=== PATIENT | female | born 1935 | race Caucasian/White ===

== ENCOUNTER 2018-07-13 22:25 | Inpatient (IN) ==
[2018-07-13] MEDS ORDERED: NS 1,000 ML IV ONE (22:55)
[2018-07-14 00:30] LABS: BASO# 0.02 X1000 (0.0-0.2); BASO% 0.2 % (0.0-0.8); EOS# 0.09 X1000 (0.0-0.7); HEMOGLOBIN 11.9 g/dL (12.0-16.0); LYMPH# 0.59 X1000 (1.2-3.4); LYMPH% 6.3 % (20.5-51.1); MCH 29.6 PG (27-31); MCV 87.1 FL (81-99); MONO# 0.95 X1000 (0.11-0.59); MONO% 10.1 % (1.7-9.3); MPV 10.6 FL (7.4-10.4); NEUT# 7.79 X1000 (1.4-6.5); NEUT% 82.4 % (42.2-75.2); PLT 215 X1000 (130-400); RBC 4.02 XMIL (4.2-5.4); WBC 9.44 X1000 (4.8-10.8)
[2018-07-14 00:40] LABS: INR 0.97; PROTIME 13.7 Seconds (11.0-16.0)
[2018-07-14 00:41] LABS: PTT 34.6 Seconds (22.3-41.8)
[2018-07-14 00:54] LABS: ALB/GLOB RATIO 1.6; CALCIUM 8.9 mg/dL (8.8-10.2); CREATININE 1.5 mg/dL (0.5-0.9); POTASSIUM 4.1 mmol/L (3.5-5.1); TOTAL BILIRUBIN 0.63 mg/dL (0.20-1.00); TOTAL PROTEIN 6.5 g/dL (6.3-8.3)
[2018-07-14] MEDS ORDERED: ASPIRIN PO ONE (01:10)
[2018-07-14 01:35] LABS: URINE SOURCE CLEAN CATCH
[2018-07-14 01:40] LABS: BILIRUBIN URINE NEGATIVE (NEGATIVE); BLOOD URINE MODERATE (NEGATIVE); COLOR ORANGE; GLUCOSE URINE NEGATIVE (NEGATIVE); KETONE URINE NEGATIVE (NEGATIVE); LEUKOCYTES URINE LARGE (NEGATIVE); NITRITE URINE POSITIVE (NEGATIVE); PH URINE 5.5; PROTEIN URINE 50 mg/dL (NEGATIVE); SP GRAVITY URINE 1.004; TURBIDITY URINE TURBID (CLEAR); UROBILINOGEN URINE NORMAL (NORMAL)
[2018-07-14 01:49] LABS: UR EPITHELIAL CELLS <10 /HPF (<10); URINE BACTERIA 4+ /HPF; URINE RBC TNTC /HPF (<10); URINE WBC TNTC /HPF (<10)
[2018-07-14 02:04] LABS: URINE CASTS GRANULAR PRESENT; URINE YEAST NONE SEEN
[2018-07-14 02:05] LABS: URINE CRYSTALS URIC ACID PRESENT; URINE SMALL ROUND CELLS NONE SEEN
--- NOTE | 2018-07-14 02:18 | PROVIDER DOCUMENTATION ---
This chart was entered by Hayley Tipton Scribe, acting as scribe for Quinn Delgadillo MD. HPI-Neurological Disorder - General Chief Complaint: Stroke-Like Symptoms Stated Complaint: n/v/d Time Seen by Provider: 07/13/18 22:51 Source: patient Unable to obtain history due to:: altered (confused) Allergies/Adverse Reactions: Patient Allergies Allergy/AdvReac Type Severity Reaction Status Date / Time No Known Allergies Allergy Verified 07/13/18 23:05 Home Medications: Home Medication List Medication Instructions Recorded Confirmed Last Taken Type Carvedilol [Coreg] 3.125 mg PO DAILY 03/24/13 07/14/18 12/09/14 08:00 History Aspirin [Aspirin EC] 81 mg PO DAILY 11/11/13 07/14/18 12/09/14 08:00 History Amlodipine Besylate 1 tab PO DAILY 07/14/18 07/14/18 Unknown History Calcitriol 1 cap PO DAILY 07/14/18 07/14/18 Unknown History - History of Present Illness-Neuro Nature of Presenting Problem: pt is a 83 yr old female presenting via EMS with complaint(pt unsure of time) of headache, nausea, vomiting, diarrhea. pt is confused, right side weakness. unknown last time normal. pt does have stroke hx, unknown prior deficits. Headache Location: reports: frontal Severity: reports: severe Onset/Duration: reports: unsure (pt reports "all day" medic reports 2-3hrs) Timing: reports: still present Character of Altered Mental Status: reports: confused Any recent trauma/injury?: reports: none Character of Deficits: reports: new weakness (right sided weakness) New weakness or altered sensation location:: reports: RUE, RLE Cognitive Baseline: alert but confused Gait Baseline: walks without assistance Associated Symptoms: reports: headache, confusion, nausea, trouble walking, vo miting, other (diarrhea) Similar Symptoms Previously?: No Recently seen or treated by another doctor?: No Review of Systems - Adult - REVIEW OF SYSTEMS - ADULT Constitutional: denies: chills, fever Eyes: denies: blurred vision, double vision Ears, Nose, Mouth & Throat: denies: ear pain, sinus problem, throat pain Cardiovascular: denies: chest pain, palpitations, syncope Respiratory: denies: shortness of breath Gastrointestinal: reports: diarrhea, nausea, vomiting. denies: abdominal pain Genitourinary: reports: no symptoms reported Musculoskeletal: denies: back pain, neck pain Integumentary: reports: no symptoms reported Neurological: reports: headache/migraines, other (weakness right side). denies: dizziness/vertigo, syncope Psychiatric: reports: no symptoms reported Endocrine: reports: no symptoms reported Hematologic/Lymphatic: reports: no symptoms reported Allergic/Immunologic: reports: no symptoms reported All Other Systems: Reviewed and Negative Past History - Adult - PAST MEDICAL HISTORY-ADULT Review of Records: reports: Old Records Reviewed, Nursing Assessment Review, Medications Reviewed, Social history reviewed & non-contributory. Major Childhood Illnesses: reports: denies history Cardiovascular: reports: HTN Respiratory: reports: denies history Gastrointestinal: reports: GERD Obstetrical/Gynecological: reports: denies history Genitourinary: reports: denies history Musculoskeletal: reports: arthritis Neurological: reports: other (vertigo) Endocrine/Immune: reports: denies history Other Conditions: reports: cataract/glaucoma (cataracts) - PRIOR SURGERIES/PROCEDURES Surgical/Procedure History: reports: hysterectomy, tonsillectomy, other (goitor nasal septum) - IMMUNIZATION STATUS Childhood Immunizations: See Nurse Assessment Flu Vaccine: See Nurse Assessment - FAMILY HISTORY Family History: reviewed, not pertinent - SOCIAL HISTORY Smoking: denies Substance Use: denies Living Situation: alone Physical Exam- Neurological - Physical Exam-Neuro Initial Vital Signs Reviewed: Yes General Appearance: alert, no apparent distress Eye Exam: bilateral eye: normal inspection, PERRL HENMT: normocephalic/atraumatic, moist mucous membranes Head Injury: no evidence of injury Neck: non-tender, full range of motion, supple, normal inspection Respiratory: chest non-tender, lungs clear, normal breath sounds Cardiovascular: normal peripheral pulses, regular rate, rhythm, no edema Abdominal Exam: normal bowel sounds, non tender, soft Lymphatic: no adenopathy Peripheral Pulses: radial (R): 2+, radial (L): 2+ Extremity: normal range of motion, non-tender, normal gait, 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 Exam: normal hearing, normal speech, PERRL, tongue deviation to R Coordination/Gait: ABN nose to finger (L) Motor/Sensory: pronator drift (R), weak motor strength RUE, weak motor strength RLE Neurologic: abnormal cerebellar tests, motor weakness Integumentary: normal color, normal turgor, warm/dry Psych/Mental Status: other (a/o x 2) - Glascow Coma Scale Best Eye Response: (4) open spontaneously Best Verbal Response: (4) confused conversation Best Motor Response: (6) obeys commands Total Glascow Score: 14 Progress - PLAN OF CARE/RESULTS Progress/Plan/Lab Results: Vital Signs - 8 hr 07/13/18 22:42 07/13/18 22:44 07/13/18 22:48 Temperature 98.2 F Pulse Rate 100 H Respiratory Rate 20 Blood Pressure 159/70 159/70 O2 Sat by Pulse Oximetry 96 96 07/13/18 22:50 07/13/18 23:00 07/13/18 23:08 Temperature Pulse Rate 97 H 97 H 102 H Respiratory Rate 19 26 H 13 Blood Pressure 147/83 O2 Sat by Pulse Oximetry 96 94 L 95 07/13/18 23:10 07/13/18 23:32 07/13/18 23:40 Temperature Pulse Rate 109 H 97 H 94 H Respiratory Rate 26 H 26 H 24 Blood Pressure 148/69 O2 Sat by Pulse Oximetry 96 96 95 07/13/18 23:48 07/13/18 23:50 07/14/18 00:00 Temperature Pulse Rate 96 H 94 H 97 H Respiratory Rate 28 H 19 19 Blood Pressure 145/75 O2 Sat by Pulse Oximetry 96 97 96 07/14/18 00:03 07/14/18 00:10 07/14/18 00:18 Temperature Pulse Rate 96 H 93 H 95 H Respiratory Rate 19 24 20 Blood Pressure 133/66 145/70 O2 Sat by Pulse Oximetry 96 96 95 07/14/18 00:20 Temperature Pulse Rate 93 H Respiratory Rate 14 Blood Pressure O2 Sat by Pulse Oximetry 96 Laboratory Results - last 24 hr 07/14/18 07/14/18 07/14/18 00:02 00:15 00:15 WBC 9.44 RBC 4.02 L Hgb 11.9 L Hct 35.0 L MCV 87.1 MCH 29.6 MCHC 34.0 RDW Std Deviation 12.0 Plt Count 215 MPV 10.6 H Immature Gran % (Auto) 0.0 Neut % (Auto) 82.4 H Lymph % (Auto) 6.3 L [place] % (Auto) 10.1 H Eos % (Auto) 1.0 Baso % (Auto) 0.2 Immature Gran # (Auto) 0.00 Neut # (Auto) 7.79 H Lymph # (Auto) 0.59 L [place] # (Auto) 0.95 H Eos # (Auto) 0.09 Baso # (Auto) 0.02 PT INR PTT (Actin FS) Sodium 139 Potassium 4.1 Chloride 105 Carbon Dioxide 20 L Anion Gap 14 BUN 39 H Creatinine 1.5 H Estimated GFR/1.73 m2 33 BUN/Creatinine Ratio 26 Glucose 127 H POC Glucose 116 H Calculated Osmolality 289 Calcium 8.9 Total Bilirubin 0.63 AST 11 ALT 8 L Alkaline Phosphatase 68 Troponin T Total Protein 6.5 Albumin 4.0 Globulin 2.5 Albumin/Globulin Ratio 1.6 Urine Source Urine Color Urine Turbidity Urine pH Ur Specific [place] Urine Protein Ur Glucose (Stick) Ur Ketones (Stick) Urine Blood Urine Nitrite Urine Bilirubin Urobilinogen Dipstick Urine Leukocytes Urine WBC (Auto) Urine RBC (Auto) U Epithel Cells (Auto) Urine Bacteria (Auto) Urine Crystals Small Round Cells Urine Casts Urine Yeast-like Cells 07/14/18 07/14/18 07/14/18 00:15 00:15 01:34 WBC RBC Hgb Hct MCV MCH MCHC RDW Std Deviation Plt Count MPV Immature Gran % (Auto) Neut % (Auto) Lymph % (Auto) [place] % (Auto) Eos % (Auto) Baso % (Auto) Immature Gran # (Auto) Neut # (Auto) Lymph # (Auto) [place] # (Auto) Eos # (Auto) Baso # (Auto) PT 13.7 INR 0.97 PTT (Actin FS) 34.6 Sodium Potassium Chloride Carbon Dioxide Anion Gap BUN Creatinine Estimated GFR/1.73 m2 BUN/Creatinine Ratio Glucose POC Glucose Calculated Osmolality Calcium Total Bilirubin AST ALT Alkaline Phosphatase Troponin T < 0.010 Total Protein Albumin Globulin Albumin/Globulin Ratio Urine Source CLEAN CATCH Urine Color ORANGE Urine Turbidity TURBID Urine pH 5.5 Ur Specific [place] 1.004 Urine Protein 50 A Ur Glucose (Stick) NEGATIVE Ur Ketones (Stick) NEGATIVE Urine Blood MODERATE A Urine Nitrite POSITIVE A Urine Bilirubin NEGATIVE Urobilinogen Dipstick NORMAL Urine Leukocytes LARGE A Urine WBC (Auto) TNTC A Urine RBC (Auto) TNTC A U Epithel Cells (Auto) <10 Urine Bacteria (Auto) 4+ Urine Crystals URIC ACID PRESENT Small Round Cells NONE SEEN Urine Casts GRANULAR PRESENT Urine Yeast-like Cells NONE SEEN Orders Category Date Time Status Cardiac Monitoring DIRECTED Care 07/13/18 22:55 Active Finger Stick Blood Sugar (ED) DIRECTED Care 07/13/18 22:55 Active Misc. NRSG Communication Order DIRECTED Care 07/13/18 22:55 Active Saline Loc NOW Care 07/13/18 22:55 Active CHEST-PORTABLE [RAD] Stat Exams 07/13/18 22:[address] HEAD W/O CONTRAST [CT] Stat Exams 07/13/18 22:55 Taken CBC WITH ELECTRONIC DIFF [HEME] Stat Lab 07/14/18 00:15 Completed COMPREHENSIVE METABOLIC PANEL [CHEM] Stat Lab 07/14/18 00:15 Completed PROTIME WITH INR [COAG] Stat Lab 07/14/18 00:15 Completed PTT [COAG] Stat Lab 07/14/18 00:15 Completed TROPONIN T Stat Lab 07/14/18 00:15 Completed URINALYSIS W/POSS RFLX CULT [URINALYSIS] Stat Lab 07/14/18 01:34 Completed URINE CULTURE [RM] Routine Lab 07/14/18 02:05 Received URINE MANUAL MICROSCOPIC [URINALYSIS] Stat Lab 07/14/18 01:34 Completed 0.9% Sodium Chloride Inj [Ns] 1,000 ml Med 07/13/18 22:55 Discontinued IV 999 mls/hr Aspirin Med 07/14/18 01:10 Discontinued 325 mg PO NOW ONE EKG [EKG] Stat Ther 07/13/18 22:55 Ordered Result Diagrams: 07/14/18 00:15 07/14/18 00:15 - EKG 1 Time of EKG reading by physician:: 00:07 EKG Read and Signed by:: Quinn Delgadillo EKG Interpretation (*Must complete 3 of following elements*): Normal Rate: 96 Rhythm: nsr [place]: normal QRS: normal OK Interval: normal ST Wave: normal - CT/MRI 1 CT Study: Head Impression: Abnormal (1. no acute intracranial hemorrhage or process. 2. age related cerebral volume loss) Departure - Departure Date of Disposition Decision: 07/14/18 Time of Disposition Decision: 02:10 DIAGNOSIS: TIA (transient ischemic attack), Nausea & vomiting Disposition: ADMITTED INPATIENT 09 Certified Medical Emergency: Emergent Condition: Stable Referrals and Follow-Ups: Yancy Hudson MD [Primary Care Provider] - - Critical Care Note This patient required my direct & personal management of CC.: No Attestation - Physician/ CARMEN Attestation Patient care was provided by Advanced Practice Provider:: No The physician spent face to face time with patient:: Yes Advanced Practice Provider documentation review:: Supervising physician onsite and consulted in the evaluation and care of this patient. The physician did have a face to face encounter with the patient. - NIH Stroke Scale NIH Type: Initial Evaluation Level of Consciousness: 0-Alert LOC Questions (ask month and age): 0-Answers Both Correctly LOC Commands (ask to open & close eyes;make a fist, let go): 0-Obeys Both Correctly Best Gaze (horizontal eye movement): 0-Normal Visual (use finger movement, counting or visual threat): 0-No Visual Loss Facial Palsy (show teeth or raise eyebrows & close eyes tght: 0-Symmetrical Movement Motor Function-left arm: 0-Normal Motor Function-right arm: 1-Drift Motor Function-left le-Normal Motor Function-right le-No Effort Against [place] Limb Ataxia([id number]-[id number], or heel to pedersen): 0-No Ataxia Sensory(pin prick to face,arms,trunk,legs-compare side/side): 0-No Ataxia Best Language(name item/read sentence.Ex-Down to [place]): 0-No Aphasia Dysarthria(Pt read words or say words Ex.Mama,Tip-Top,Thanks: 0-Normal Articulation Extinction and Inattention: 0-Normal NIH Total Score: 4 This chart was documented by the indicated scribe, (Hayley Tipton, [employer]) and accurately reflects the services I performed and decisions made by me, Quinn Delgadillo MD, as attested by the provider's signature.
[2018-07-14] MEDS ORDERED: ZOFRAN IV PRN ×2 (03:38→08:46)
[2018-07-14] MEDS ORDERED: TYLENOL PO PRN (03:38)
[2018-07-14] MEDS ORDERED: ROCEPHIN 1 GM in NS 50 ML IV SCH (03:45)
[2018-07-14] MEDS ORDERED: NS 1,000 ML IV SCH (03:45)
--- NOTE | 2018-07-14 04:45 | HISTORY AND PHYSICAL ---
CHIEF COMPLAINT: Chills, weakness. HISTORY OF PRESENT ILLNESS: Ms. Levy is an 83-year-old female patient who is followed by Dr. Eusebio Hudson outpatient. She comes in today after having a complaint of chills for the majority of the day. She had nausea and vomiting after lunch, and sickness at her stomach. She had abdominal pain. She complained of dysuria. She denied any type of frequency. She states that her right side is always weaker than her left side. She walks with a cane or walker. She is a poor historian, despite being alert and oriented to person, place, time and situation. A CT done in the emergency room did not show any type of acute stroke. Her labs were positive for a urinary tract infection. She will be admitted for further evaluation and treatment. PAST MEDICAL HISTORY: Hypertension, arthritis, falls, anxiety. PAST SURGICAL HISTORY: Hysterectomy, tonsillectomy and goiter removal many years ago. FAMILY HISTORY: Notable for kidney and bladder cancer in her mother. No family history of heart disease. She stated her father from old age. SOCIAL HISTORY: Lives alone in [place], I believe. She is . No tobacco or alcohol. No illicit drugs. ALLERGIES: No known allergies. HOME MEDICATIONS: 1. Amlodipine 10 mg p.o. daily. 2. Aspirin 81 mg p.o. daily. 3. Calcitriol 0.25 mcg p.o. daily. 4. Coreg 3.125 mg p.o. daily. REVIEW OF SYSTEMS: A 14-point review of systems conducted with the patient. She denied headache, diarrhea, urinary frequency, hematuria, hematochezia, hematemesis. Pertinent positives are listed above in the HPI. All other systems reviewed and found to be negative. PHYSICAL EXAMINATION: VITAL SIGNS: Temperature 98.2, pulse 91, respirations 20, blood pressure 140/69, oxygen saturation 96% on room air. GENERAL: Pleasant 83-year-old female lying in the ER stretcher. She is alert and oriented to person, place, time and situation. She is in no acute distress. She is a poor historian. HEENT: Head is atraumatic, normocephalic. Pupils equal, round and reactive to light. Extraocular eye movements are intact. Sclerae are anicteric. Conjunctivae are pink. Oral mucosa is moist. NECK: No carotid bruit. Trachea is midline. CARDIAC: S1, S2 appreciated. No murmurs, gallops or rubs. LUNGS: Clear to auscultation bilaterally. No rhonchi, wheezes or rales. Symmetric rise and fall with respirations. ABDOMEN: Soft, nondistended. It is tender in the suprapubic area. Bowel sounds present in all 4 quadrants and normoactive. No pulsatile masses. No organomegaly. BACK: No CVA tenderness. EXTREMITIES: No cyanosis, clubbing or edema; 2+ pedal pulses bilaterally. GENITOURINARY: No bladder distention. Otherwise deferred. NEUROLOGICAL: Right-sided weakness that is 3/5 strength as opposed to 4/5 strength on the left side. She is alert and oriented x3. A poor historian. Cranial nerves II-XII otherwise appear to be grossly intact. DIAGNOSTIC DATA: CT of the head shows chronic microvascular changes. Chest x- ray: No infiltrate, no pulmonary edema. LABORATORY DATA: WBC 9.44, hemoglobin 11.9, hematocrit 35, platelet count 215,000. Coagulations within normal limits. Sodium 139, potassium 4.1, chloride 105, carbon dioxide 20, BUN 39, creatinine 1.5, glucose 127. Urine: Nitrite positive, leukocyte esterase positive, too numerous to count WBCs, positive for hematuria, 4+ bacteria. ASSESSMENT AND PLAN: 1. Urinary tract infection. Will treat with Rocephin 1 g IV q.24 hours. 2. Questionable transient ischemic attack versus cerebrovascular accident. The patient has right- sided weakness. She states that this is chronic, however, she is a poor historian. Will order an MRI tomorrow morning, to be followed up by her primary care provider, Dr. Eusebio Hudson. Order a lipid profile. She is not on any type of statin. Continue aspirin daily. 3. Hypertension. Will continue Coreg. Will hold Norvasc to be continued by Dr. Hudson. If the patient has had a cerebrovascular accident will want to allow for permissive hypertension. 4. Chronic kidney disease stage 3. The patient appears to be close to baseline. She has been given a bolus in the emergency room. Will continue gentle fluid hydration and recheck laboratory data. Further recommendations per the patient's clinical course. Dictated by JERICHO Andrade for Veronica Kitchen MD cc: JERICHO Andrade MD Dr. P.J. Reddy Independent exam was negative for CVAT. Pt was an extremely poor historian so we decided to proceed with also ruling out TIA,but PRELOAD SUPERVISOR exam was negative. MTDD
--- NOTE | 2018-07-14 06:31 | Diag Imaging Result Doc PS360 ---
CHEST-PORTABLE - 07/13/2018 INDICATION: stroke like symptoms COMPARISON: 12/09/2014 FINDINGS: There is some faint infiltrate or atelectasis in the lateral right upper lobe. No other infiltrates. Heart size is top normal. No pneumothorax or pleural effusion. IMPRESSION: Faint infiltrate or atelectasis in the lateral right upper lobe. Electronically signed by Shawn Benavides 07/14/2018 6:28 AM
--- NOTE | 2018-07-14 07:00 | EKG Report ---
Test Performed on : 07/14/2018 00:05:07 AM Test Reason : Stroke like symptoms Blood Pressure : / mmHG Vent. Rate : 096 BPM Atrial Rate : 096 BPM P-R Int : 194 ms QRS Dur : 068 ms QT Int : 330 ms P-R-T Axes : 050 021 053 degrees QTc Int : 416 ms Normal sinus rhythm. Normal ECG When compared with ECG of 10-DEC-2014 00:25, Questionable change in QRS axis Criteria for Inferior infarct are no longer present Unconfirmed Result
--- NOTE | 2018-07-14 07:38 | Diag Imaging Result Doc PS360 ---
EXAM: CT HEAD W/O CONTRAST INDICATION: stroke like symptoms TECHNIQUE: This exam was performed using automated exposure control, adjustment of mA or kV according to patient size, and/or use of iterative reconstruction technique. COMPARISON: 03/24/2013 FINDINGS: There is mild diffuse brain atrophy that is essentially stable. There is patchy low attenuation in the periventricular and subcortical white matter suggesting mild microangiopathy that is stable to marginally more prominent than the previous study. There is no definite acute infarct given the limited sensitivity of CT versus MRI. There is no discrete intracranial mass, mass effect, or intracranial hemorrhage. The surrounding soft tissues and bony structures are essentially unremarkable. IMPRESSION: Chronic appearing changes as described. No definite acute intracranial pathology by CT. Electronically signed by Christian Sanchez 07/14/2018 7:36 AM
[2018-07-14] MEDS ORDERED: ROCALTROL PO SCH (09:00)
[2018-07-14] MEDS ORDERED: ASPIRIN EC PO SCH (09:00)
[2018-07-14] MEDS ORDERED: COREG PO SCH (09:00)
[2018-07-14] MEDS ORDERED: SODIUM CHLORIDE 0.9% INJ SCH (09:00)
[2018-07-14] MEDS ORDERED: PROTONIX IV SCH (09:00)
[2018-07-14 16:14] VITALS: BP 134/59
--- NOTE | 2018-07-14 21:29 | ECHO REPORT ---
ORDER DATE: 07/14/2018 MEASUREMENTS: 1. Septal thickness 0.9. 2. Left ventricular internal diameter diastole 5.0. 3. Posterior wall thickness 0.9. 4. Left ventricular internal diameter in systole 2.7. 5. Aortic root 3.7. 6. Left atrium 3.3. SUMMARY: 1. Technically difficult study due to limited acoustic window quality. Intravenous echo contrast agent Optison was utilized to enhance endocardial definition. 2. Mild aortic valve sclerosis demonstrated with adequate opening on 2-dimensional images. Peak gradient across the aortic valve was approximately 12 mmHg. Mild mitral annular calcification is demonstrated. There is trace mitral regurgitation. Tricuspid valve without evidence of structural abnormality while pulmonic valves were not well demonstrated. There is trace tricuspid regurgitation. Estimated systolic PA pressure by Doppler is 30 to 35 mmHg. Aortic root is normal in size. 3. Normal left ventricular dimensions demonstrated. Estimated left ventricular ejection fraction appears to be at least 70%. No regional wall motion abnormalities are evident. Doppler suggests grade 1 left ventricular diastolic dysfunction. Left atrium, right atrium, right ventricle are normal in size. Right ventricular systolic function appears to be normal. 4. Intravenous agitated saline contrast study (bubble study) performed. There appears to be late appearance of bubbles in the left side of the heart following injection of intravenous agitated saline. [id number] intracardiac shunt cannot be excluded. If clinically indicated, consider transesophageal echocardiography for definitive evaluation. 5. No pericardial effusion. 6. Appearance of inferior vena cava suggests normal central venous pressure. cc: MD Crispin Prescott CRNP Jagan Reddy, MD
--- NOTE | 2018-07-15 23:37 | DISCHARGE SUMMARY ---
ADMISSION DATE: 07/14/2018 DISCHARGE DATE: 07/14/2018 DISCHARGING DIAGNOSIS: Abdominal pain due to urinary tract infection with gram-negative rods. SECONDARY DIAGNOSES: 1. Hypertension. 2. Vitamin D deficiency. 3. Osteoarthritis. BRIEF HISTORY: Please see the H and P that was done by hospitalist. In brief, she is an 83-year- old white female. After having supper, started having abdominal pain, nausea, throwing up. As a result, the family brought to the emergency room. Basically, the patient was admitted for altered mental status, UTI. HOSPITAL COURSE: I have seen the patient on the following day. I have known her very well, and she came back to the baseline. She is tolerating the diet very well. She has gram-negative rods in the urine. Belly exam is soft and benign. The patient is anxious to go home. WORKUP IN THE HOSPITAL: CBC: White cell count 9.4, hematocrit 35, platelet 215,000. PT 13, INR 0.9. Sodium 139, potassium 4.1, chloride 105, BUN 39, creatinine 1.5, glucose 126. Cardiac enzymes were normal. Cholesterol 169, LDL 127, HDL 36. Urinalysis positive for infection as well as cultures have gram-negative rods. Echocardiography findings: LV function is 70%, normal LV cavity size, diastolic dysfunction was noted. CT head: Microvascular ischemic changes. Chest x- ray: No acute disease. EKG: Normal sinus, nothing acute. DISCHARGE INSTRUCTIONS: Coreg 3.125 daily. Aspirin 81 mg daily. Calcitriol 0.25 mg daily. Zofran as needed for nausea. Amlodipine 10 daily. Macrobid 100 p.o. b.i.d. Follow up in my office next week. cc: Miguel Hudson MD
== END 2018-07-14 18:15 | disposition home or self-care (01) | DRG 689 ==
LOC: SUPCPDRO → ED 22:25 → SUATTDRO 07-14 04:38 → 3N 07-14 04:38
PROVIDERS: ADMIT Internal Medicine; ATTEND Internal Medicine
CPT/HCPCS: 70450; 71010; 71045; 80053; 80061; 81001; 82948; 83721; 84484; 85025; 85610; 85730; 87077; 87088; 87186; 93005; 93306; 96360; 96361; 99285; A9270; C9113; J0696; J7030; S0164; XXXXX

== ENCOUNTER 2018-08-28 14:14 | Inpatient (IN) ==
[~2018-08-28 14:14] MED LIST: ZOFRAN IV PRN
[2018-08-28] MEDS: PEPCID IV SCH (15:04)
[2018-08-28] MEDS: SODIUM CHLORIDE 0.9% INJ SCH (15:04)
[2018-08-28] MEDS: NS 1,000 ML IV SCH ×2 (15:05→15:07)
[2018-08-28] MEDS: LEVAQUIN 500 MG/D5W 500 MG/100 ML IVPB IV SCH (15:06)
--- NOTE | 2018-08-28 20:59 | HISTORY AND PHYSICAL ---
CHIEF COMPLAINT: Nausea, upper abdominal bloating, not eating well for the last 2 days. HISTORY OF PRESENT ILLNESS: She is an 83-year-old white female who came to my office today with the above symptoms. Patient was treated for UTI recurrent due to incontinence of urine. Upon examination, she is dehydrated. BUN 39, creatinine 1.9. Ultrasound of the abdomen showed gallstones with sludge. Basically, admitted to the hospital for symptomatic gallstone disease and dehydration. She was admitted in July for UTI at that time. PAST MEDICAL HISTORY: 1. Hypertension. 2. Chronic anxiety. 3. Recurrent UTIs. 4. Osteoarthritis. 5. B12 deficiency. 6. Vitamin D deficiency. PAST SURGICAL HISTORY: Hysterectomy, tonsillectomy and thyroidectomy. MEDICINES: Amlodipine 10 daily, aspirin 81 mg daily, calcitriol 0.25 mcg daily, Coreg 3.125 daily. ALLERGIES: Not known. SOCIAL HISTORY: She lives alone in [place]. disease. No tobacco. No drug abuse. FAMILY HISTORY: Mother had a kidney and bladder cancer. Father of old age. REVIEW OF SYSTEMS: HEENT: No headache no vision problem. No earache. No sore throat. Neck: No goiter. No lymphadenopathy. No bruit. Cardiopulmonary: No chest pain, shortness of breath, PND, orthopnea. GI: Upper abdominal pain, nausea, and no altered bowel habits. No bleeding per rectum. : No history of hesitancy, frequency, dysuria. Neurological: Leg weakness. PHYSICAL EXAMINATION: VITAL SIGNS: Temperature is 97 degrees, pulse 87, blood pressure 120/61, 5 feet 5 inches, 148 pounds. HEENT: Within normal limits. NECK: Supple. No lymphadenopathy. CHEST: Bilateral air entry. HEART: Sounds are regular. ABDOMEN: Belly is soft. Tender in the right upper quadrant. Good bowel sounds. EXTREMITIES: No peripheral edema or cyanosis. NEUROLOGIC: No obvious neurological deficits. INVESTIGATIONS: CBC in my office is normal, SMA 7, BUN 39, creatinine 1.9. Recently treated for UTI. Ultrasound, multiple gallstones. ASSESSMENT AND PLAN: An 83-year-old white female admitted to the hospital with: 1. Symptomatic gallstone disease. Plan is NPO, IV fluids, follow up on CBC, BMP. 2. Deep vein thrombosis and gastrointestinal prophylaxis. Pepcid and Lovenox and Zofran for nausea. 3. IV Levaquin for antibiotics. Check the HIDA scan. Consult with Dr. Wright. Follow up on the pending labs. 4. Discussed the plan of care with family. cc: Miguel Hudson MD
[2018-08-28 21:25] LABS: URINE SOURCE CLEAN CATCH
[2018-08-28 21:29] LABS: BILIRUBIN URINE NEGATIVE (NEGATIVE); BLOOD URINE NEGATIVE (NEGATIVE); COLOR YELLOW; GLUCOSE URINE NEGATIVE (NEGATIVE); KETONE URINE NEGATIVE (NEGATIVE); LEUKOCYTES URINE LARGE (NEGATIVE); NITRITE URINE NEGATIVE (NEGATIVE); PROTEIN URINE TRACE mg/dL (NEGATIVE); SP GRAVITY URINE 1.013; TURBIDITY URINE CLEAR (CLEAR); UR EPITHELIAL CELLS <10 /HPF (<10); URINE BACTERIA NEGATIVE /HPF; URINE RBC <10 /HPF (<10); UROBILINOGEN URINE NORMAL (NORMAL)
[2018-08-29] MEDS: LOVENOX SUBQ SCH ×2 (00:02→22:46)
[2018-08-29] MEDS: PEPCID IV SCH ×2 (03:12→14:39)
[2018-08-29] MEDS: SODIUM CHLORIDE 0.9% INJ SCH (03:13)
[2018-08-29 06:39] LABS: ALB/GLOB RATIO 1.3; ALBUMIN 3.7 g/dL (3.5-5.0); CALCIUM 9.3 mg/dL (8.8-10.2); CREATININE 1.6 mg/dL (0.5-0.9); POTASSIUM 3.9 mmol/L (3.5-5.1); TOTAL BILIRUBIN 0.78 mg/dL (0.20-1.00); TOTAL PROTEIN 6.6 g/dL (6.3-8.3)
[2018-08-29 06:43] LABS: BASO# 0.05 X1000 (0.0-0.2); BASO% 1.1 % (0.0-0.8); EOS# 0.27 X1000 (0.0-0.7); EOS% 5.7 % (0.0-10.0); HEMATOCRIT 33.4 % (37.0-47.0); HEMOGLOBIN 11.1 g/dL (12.0-16.0); IMM GRAN# 0.04 X1000 (0.0-0.04); IMM GRAN% 0.8 % (0.0-0.5); LYMPH# 1.28 X1000 (1.2-3.4); LYMPH% 27.2 % (20.5-51.1); MCH 29.1 PG (27-31); MCHC 33.2 g/dL (33-37); MCV 87.4 FL (81-99); MONO# 0.71 X1000 (0.11-0.59); MONO% 15.1 % (1.7-9.3); MPV 10.8 FL (7.4-10.4); NEUT# 2.36 X1000 (1.4-6.5); NEUT% 50.1 % (42.2-75.2); PLT 201 X1000 (130-400); RBC 3.82 XMIL (4.2-5.4); RDW 12.5 % (11.5-14.5); WBC 4.71 X1000 (4.8-10.8)
[2018-08-29] MEDS: NS 1,000 ML IV SCH ×2 (07:03→07:13)
--- NOTE | 2018-08-29 07:58 | CONSULTATION ---
DATE OF CONSULTATION: 08/29/2018 HISTORY OF PRESENT ILLNESS: Ms Jennifer Levy is an 83-year-old, white female patient of Dr. Yancy Hudson, who has been experiencing bloating and nausea. An ultrasound of her gallbladder documented gallstones. She has been admitted because of her symptoms and we were asked to evaluate her. PAST MEDICAL HISTORY: Hypertension, chronic anxiety, recurrent UTIs, osteoarthritis, B12 deficiency, vitamin D deficiency. PAST SURGICAL HISTORY: Hysterectomy, tonsillectomy and thyroidectomy. MEDICATIONS: 1. Amlodipine. 2. Aspirin. 3. Calcitriol. 4. Coreg. ALLERGIES: No known drug allergies. SOCIAL HISTORY: She lives alone in [place], has a little dog that lives with her. She does have family in this area. She does not smoke. FAMILY HISTORY: Mother had kidney and bladder cancer. Father of old age. REVIEW OF SYSTEMS: A 14-point review of systems was performed, was essentially negative except for the history of present illness. PHYSICAL EXAMINATION: General: Ms. Levy is an older white female, in no acute distress. HEENT: No jaundice. No oral lesions. Satisfactory dentition. Neck: No cervical or supraclavicular lymphadenopathy. Heart: Regular rate. Lungs: Clear to auscultation and percussion bilaterally. Abdomen: Soft. She has a well-healed scar, lower abdomen. No hernia. No palpable mass. There was no significant tenderness, no costovertebral tenderness. Rectal and vaginal: Not performed. Extremities: She does have palpable peripheral pulses. No peripheral edema. Neurological: She is alert and oriented x3 and appropriate. LABORATORY DATA: CBC done by Dr. Hudson was normal. Creatinine is 1.6. IMAGING: Ultrasound shows multiple gallstones. IMPRESSION: Symptomatic gallstones. PLAN: Laparoscopic, possible open, cholecystectomy this afternoon. I have discussed the procedure in detail with her at the bedside including risks of bleeding, infection, injury to intra-abdominal contents with trocar placement, injury of extrahepatic ducts requiring reoperation, bile leak requiring reoperation for drainage. Conversion of laparoscopic to open cholecystectomy. She understands the need for surgery and its risks, and she wants to proceed. cc: MD Miguel López MD
[2018-08-29] MEDS ORDERED: SODIUM CHLORIDE 0.9% ONE (10:15)
[2018-08-29] MEDS ORDERED: LR 1,000 ML ONE (10:15)
[2018-08-29] MEDS ORDERED: MARCAINE 0.25% PF/EPI 1:200,000 ONE (10:15)
[2018-08-29] MEDS ORDERED: DIPRIVAN 1% ONE (10:54)
[2018-08-29] MEDS ORDERED: STERILE WATER INJ. ONE (10:56)
[2018-08-29] MEDS ORDERED: NORCURON ONE (10:56)
[2018-08-29] MEDS ORDERED: DECADRON ONE (12:16)
[2018-08-29] MEDS ORDERED: ZOFRAN ONE (12:16)
[2018-08-29] MEDS ORDERED: MORPHINE ONE (12:30)
--- NOTE | 2018-08-29 13:57 | Diag Imaging Result Doc PS360 ---
EXAM: OPERATIVE CHOLANGIOGRAM HISTORY: GALLBLADDER DX TECHNIQUE: Two views COMPARISON: None. FINDINGS: Intraoperative cholangiogram, two views. Contrast fills a dilated common bile duct with reflux into the pancreatic duct and emptying into the duodenum. No stricture. No definite stone. Electronically signed by Rogelio Durán 08/29/2018 1:55 PM
--- NOTE | 2018-08-29 14:24 | OPERATIVE NOTE ---
PROCEDURE DATE: 08/29/2018 PREOPERATIVE DIAGNOSIS: Chronic cholecystitis with cholelithiasis. POSTOPERATIVE DIAGNOSIS: Chronic cholecystitis with cholelithiasis. PRINCIPAL PROCEDURE: Laparoscopic cholecystectomy with intraoperative cholangiogram. SURGEON: Soila Wright MD. ANESTHESIA: General in addition to local anesthetic. ESTIMATED BLOOD LOSS: 10 mL. DRAINS: None. INDICATIONS: Jennifer Levy is an 83-year-old, white female patient of Dr. PILAR Hudson, who has been experiencing epigastric and right upper quadrant pain, also bloating and nausea, and ultrasound documented gallstones. It was felt that her gallstones were symptomatic, and cholecystectomy was recommended. FINDINGS: The gallbladder was floppy and distended with bile. It had multiple stones within it. We did do an intraoperative cholangiogram, which showed free flow of the dye into the duodenum without evidence of extrahepatic stones or obstruction. There was some dilatation of the common bile duct. We filled part of the pancreatic duct which appeared to be normal. The liver appeared to be healthy as did the surface of the bowel. No other intra-abdominal pathology was noted and we felt we did the operation safely. PROCEDURE: The patient was brought to the operating room, placed supine, received general anesthesia, was intubated. The abdomen was prepped and draped within the sterile field. We made a small incision below the umbilicus within the midline using a 15 blade scalpel. Veress needle was introduced through this incision into the abdomen. Pneumoperitoneum was established. The Veress needle was removed and we placed an 11 mm trocar through this incision into the abdomen. The camera was placed through this port, and the abdomen was explored for injury, there was none. Three other trocars were placed along the right costal margin under direct vision the camera. We placed an 11 mm trocar just to the right of the midline and two 5 mm trocars in our midclavicular and anterior axillary lines. Through our most lateral port, the gallbladder was grasped and retracted superiorly along with the right lobe of the liver. Another grasper was used to grab the body of the gallbladder. We had to take down some adhesions between the duodenum and the underside of the gallbladder and also the omentum and the underside of the gallbladder. We did that using spatula cautery carefully. We used blunt dissection in the triangle of Calot. We identified the cystic duct along its length. We could see it clearly insert into the common bile duct proximally. We identified the cystic artery. There was a branch coming off a curved hepatic artery that curved over the common bile duct. We identified this branch clearly. I placed a clip distally and 2 proximally. It was divided using the hook scissors. The hepatic artery was preserved. I placed a clip at the cystic duct/gallbladder junction. I made a small incision in the cystic duct using hook scissors and a taut intraoperative cholangiogram catheter was used to perform the cholangiogram with the findings above. Once the cholangiogram was completed, the catheter was removed and 2 clips were placed proximally on the cystic duct. We divided the cystic duct between clips using hook scissors. The spatula cautery was used to remove the gallbladder from the liver bed. We used an endobag to remove the gallbladder through our umbilical incision. We placed a trocar back through this incision and the area of operation was thoroughly inspected, irrigated, and the irrigation was removed with suction. There was no evidence of ongoing bleeding or bile leak. No drains were left. All trocars were removed under direct vision the camera. The pneumoperitoneum was allowed to dissipate. I used a [id number] 2-0 Vicryl stitch to reapproximate the fascia at the umbilicus. All skin was closed with 4-0 Monocryl subcuticular stitch. Steri-Strips were applied. She tolerated the procedure well with plans for her to go the recovery room and then be readmitted to the floor. cc: MD Miguel López MD
[2018-08-29] MEDS: LEVAQUIN 500 MG/D5W 500 MG/100 ML IVPB IV SCH (14:39)
[2018-08-29] MEDS ORDERED: NORCO-7.5 PO PRN (15:02)
[2018-08-29] MEDS ORDERED: ZOFRAN IV PRN (15:03)
[2018-08-29] MEDS: LR 1,000 ML IV SCH (16:54)
--- NOTE | 2018-08-29 21:24 | PROGRESS NOTE ---
DATE: 08/29/2018 SUBJECTIVE: I appreciated Dr. Wright's consult. The patient is going for lap cholecystectomy this afternoon. REVIEW OF SYSTEMS: Nausea. Upper abdominal bloating. PHYSICAL EXAMINATION: Vital signs: Temperature is 98 degrees, pulse 93, blood pressure is 138/62. HEENT: Within normal limits. Neck: Supple. No lymphadenopathy. Chest: Bilateral air entry. Heart: Sounds are regular. Abdomen: Belly is soft, nontender. Good bowel sounds. LABS: CBC white count 4.7, hematocrit 33, platelets 201,000. Sodium 140, potassium 3.9, BUN 31, creatinine 1.6. LFTs are normal. Ultrasound in Med/Surg significant gallstone disease. ASSESSMENT AND PLAN: 1. Symptomatic gallstone disease. 2. Dehydration. 3. Upper abdominal pain, bloating. 4. Plan is laparoscopic cholecystectomy. Currently, IV fluids and IV Levaquin. 5. Deep vein thrombosis and gastrointestinal prophylaxis as per order sheet. 6. Slowly reconcile home medicines after the laparoscopic cholecystectomy. 7. Discontinue HIDA scan. 8. I appreciated Dr. Wright's consult. LEVEL OF DOCUMENTATION: 35 minutes. cc: Miguel Hudson MD
[2018-08-29] MEDS: PERIDEX MT SCH (22:46)
[2018-08-30] MEDS: LR 1,000 ML IV SCH (05:07)
[2018-08-30] MEDS: PEPCID IV SCH ×2 (05:08→13:23)
[2018-08-30] MEDS: SODIUM CHLORIDE 0.9% INJ SCH ×2 (05:08→13:23)
[2018-08-30 09:46] LABS: CREATININE 1.3 mg/dL (0.5-0.9); POTASSIUM 4.3 mmol/L (3.5-5.1)
[2018-08-30] MEDS: PERIDEX MT SCH (10:55)
[2018-08-30] MEDS: LEVAQUIN 500 MG/D5W 500 MG/100 ML IVPB IV SCH (13:23)
[2018-08-30 19:52] VITALS: BP 159/66
--- NOTE | 2018-08-30 20:14 | PROGRESS NOTE ---
DATE: 08/30/2018 SUBJECTIVE: The patient is doing better, wants to eat. Decrease in nausea vomiting. Path report multiple gallstones. PHYSICAL EXAM: Vital signs: Temperature is 97, vitals are stable. HEENT: Within normal limits. Chest: Clear. Heart: Sounds are regular. Abdomen: Belly is soft, nontender. Good bowel sounds. INVESTIGATIONS: Sodium 137, potassium 4.3, BUN 26, creatinine 1.3. Urinalysis positive for dipstick infection. Cultures were negative. ASSESSMENT AND PLAN: 1. Status post laparoscopic cholecystectomy. 2. Dehydration. 3. Urinary tract infection, getting better and follow up on the labs. 4. If she is tolerating the diet, we will discharge today or in the morning. LEVEL OF DOCUMENTATION: 25 minutes. cc: Miguel Hudson MD
== END 2018-08-30 21:32 | disposition home or self-care (01) | DRG 419 ==
LOC: DIRADM → 4N 14:14
PROVIDERS: ADMIT Internal Medicine; ATTEND Internal Medicine
CPT/HCPCS: 74300; 80048; 80053; 81001; 85025; 87088; 88304; 94761; 94799; A9270; C1751; J1100; J1650; J1956; J2270; J2405; J7030; J7120; Q9966; Q9967; S0028

== ENCOUNTER 2018-10-21 23:45 | Inpatient (IN) ==
[2018-10-22 00:42] LABS: BASO# 0.02 X1000 (0.0-0.2); BASO% 0.2 % (0.0-0.8); EOS# 0.05 X1000 (0.0-0.7); EOS% 0.5 % (0.0-10.0); HEMATOCRIT 31.4 % (37.0-47.0); HEMOGLOBIN 10.4 g/dL (12.0-16.0); IMM GRAN# 0.05 X1000 (0.0-0.04); IMM GRAN% 0.5 % (0.0-0.5); LYMPH# 1.18 X1000 (1.2-3.4); LYMPH% 10.9 % (20.5-51.1); MCH 27.9 PG (27-31); MCHC 33.1 g/dL (33-37); MCV 84.2 FL (81-99); MONO# 1.33 X1000 (0.11-0.59); MONO% 12.3 % (1.7-9.3); MPV 10.2 FL (7.4-10.4); NEUT# 8.15 X1000 (1.4-6.5); NEUT% 75.6 % (42.2-75.2); PLT 293 X1000 (130-400); RBC 3.73 XMIL (4.2-5.4); RDW 14.9 % (11.5-14.5); WBC 10.78 X1000 (4.8-10.8)
[2018-10-22] MEDS ORDERED: NS 1,000 ML IV ONE (00:42)
[2018-10-22 01:14] LABS: ALB/GLOB RATIO 0.9; ALBUMIN 2.9 g/dL (3.5-5.0); CALCIUM 8.1 mg/dL (8.8-10.2); CREATININE 1.1 mg/dL (0.5-0.9); POTASSIUM 4.1 mmol/L (3.5-5.1); TOTAL BILIRUBIN 0.68 mg/dL (0.20-1.00)
[2018-10-22] MEDS ORDERED: CARDIZEM IV ONE (02:04)
--- NOTE | 2018-10-22 02:12 | PROVIDER DOCUMENTATION ---
This chart was entered by Harper Shelley Scribe, acting as scribe for Damon Marquez MD. HPI-General Adult - General Chief Complaint: SEPSIS ALERT - D Stated Complaint: ams/ sob Time Seen by Provider: 10/21/18 23:52 Source: patient Allergies/Adverse Reactions: Patient Allergies Allergy/AdvReac Type Severity Reaction Status Date / Time No Known Allergies Allergy Verified 08/28/18 14:25 Home Medications: Home Medication List Medication Instructions Recorded Confirmed Last Taken Type Aspirin [Aspirin EC] 81 mg PO DAILY 11/11/13 09/02/18 08/27/18 08:00 History 81 mg Amlodipine Besylate 1 tab PO DAILY 07/14/18 09/02/18 08/27/18 08:00 History 10 mg Calcitriol 1 cap PO DAILY 07/14/18 09/02/18 08/27/18 08:00 History 0.25 mcg Acetaminophen [Tylenol] 650 mg PO Q4-6H PRN PRN tab 09/22/18 Unknown Rx Apixaban [Eliquis] 2.5 mg PO BID #60 tab 09/22/18 Unknown Rx Calcitriol [Rocaltrol] 0.25 microgm PO DAILY cap 09/22/18 10/22/18 Unknown Rx Cyanocobalamin/Folic Acid [Vitamin 1 ea PO DAILY #90 tab 09/22/18 10/22/18 Unknown Rx N40-Hemqh Acid Tablet] Menthol/Zinc Oxide Ointment 10 applicator TOP PRN PRN tube 09/22/18 Unknown Rx [Calmoseptine Ointment] Methimazole [Tapazole] 10 mg PO BID tab 09/22/18 10/22/18 Unknown Rx Metoprolol [Lopressor] 50 mg PO BID tab 09/22/18 10/22/18 Unknown Rx Amlodipine Besylate 5 mg PO DAILY 10/22/18 10/22/18 Unknown History Escitalopram [Lexapro] 10 mg PO DAILY 10/22/18 10/22/18 Unknown History Famotidine 40 mg PO DAILY 10/22/18 10/22/18 Unknown History - History of Present Illness -Gen Adult Nature of Presenting Problems: Pt is 83/F presenting to ED via EMS w/ SOB. Pt was recently in rehab after h aving pneumonia and just got home yesterday. She is unable to answer questions at bedside and continually falls asleep. She only tells us that her blood pressure is high. Location of Pain/Injury: reports: generalized Pain Radiation: reports: no radiation Quality of Pain: reports: aching Severity: reports: moderate Onset/Duration: reports: just prior to arrival Timing: reports: still present Context/Activities at Onset: reports: none Modifying Factors: improves with: nothing Associated Symptoms: reports: shortness of breath. denies: nausea, vomiting Similar Symptoms Previously?: Yes Recently seen or treated by another doctor?: Yes Review of Systems - Adult - REVIEW OF SYSTEMS - ADULT Constitutional: reports: no symptoms reported. denies: chills, fever Eyes: reports: no symptoms reported Ears, Nose, Mouth & Throat: reports: no symptoms reported Cardiovascular: reports: no symptoms reported Respiratory: reports: shortness of breath. denies: cough Gastrointestinal: reports: no symptoms reported. denies: abdominal pain, nausea, vomiting Genitourinary: reports: no symptoms reported Musculoskeletal: reports: no symptoms reported Integumentary: reports: no symptoms reported Neurological: reports: no symptoms reported. denies: dizziness/vertigo, headache/migraines Psychiatric: reports: no symptoms reported Endocrine: reports: no symptoms reported Hematologic/Lymphatic: reports: no symptoms reported Allergic/Immunologic: reports: no symptoms reported All Other Systems: Reviewed and Negative Past History - Adult - PAST MEDICAL HISTORY-ADULT Review of Records: reports: Old Records Reviewed, Nursing Assessment Review, Medications Reviewed, Social history reviewed & non-contributory. Major Childhood Illnesses: reports: denies history Cardiovascular: reports: HTN Respiratory: reports: denies history Gastrointestinal: reports: GERD Obstetrical/Gynecological: reports: denies history Genitourinary: reports: denies history Musculoskeletal: reports: arthritis Neurological: reports: other (vertigo) Psychiatric: reports: denies history Endocrine/Immune: reports: denies history Other Conditions: reports: cataract/glaucoma (cataracts) - PRIOR SURGERIES/PROCEDURES Surgical/Procedure History: reports: recent surgery (cholecystectomy on tuesday08/29/18), cholecystectomy, hysterectomy, tonsillectomy, other (goitor nasal septum) - IMMUNIZATION STATUS Childhood Immunizations: See Nurse Assessment Flu Vaccine: See Nurse Assessment - FAMILY HISTORY Family History: reviewed, not pertinent - SOCIAL HISTORY Smoking: denies, non-smoker Substance Use: none/never Alcohol Use Frequency: never Living Situation: family Physical Exam-General - PHYSICAL EXAM-ADULT Initial Vital Signs Reviewed: Yes - CONSTITUTIONAL General Appearance: appears well, alert, no apparent distress - EYES Eyes: PERRL/EOMI, pink conjunctivae - HEAD, EARS, NOSE, MOUTH & THROAT HENMT: normocephalic/atraumatic, moist mucous membranes, normal ENT inspection - NECK Neck: non-tender, full range of motion, supple, normal inspection - RESPIRATORY Respiratory: increased rate, other (course breath sounds) - CARDIOVASCULAR Cardiovascular: regular rate, rhythm - GASTROINTESTINAL (ABDOMEN) Abdominal Exam: non tender - MUSCULOSKELETAL Extremity: normal range of motion, non-tender, normal gait - SKIN Integumentary: normal color, warm/dry - NEUROLOGIC Neurologic: grossly normal - PSYCHIATRIC Psych/Mental Status: normal mood/affect, normal thought content, normal thought process, oriented x 3 Progress - PLAN OF CARE/RESULTS Progress/Plan/Lab Results: Vital Signs - 8 hr 10/22/18 00:07 Temperature 98.5 F Pulse Rate 135 H Respiratory Rate 42 H Blood Pressure 138/97 O2 Sat by Pulse Oximetry 93 L Laboratory Results - last 24 hr 10/22/18 00:17 WBC 10.78 RBC 3.73 L Hgb 10.4 L Hct 31.4 L MCV 84.2 MCH 27.9 MCHC 33.1 RDW Std Deviation 14.9 H Plt Count 293 MPV 10.2 Immature Gran % (Auto) 0.5 Neut % (Auto) 75.6 H Lymph % (Auto) 10.9 L [place] % (Auto) 12.3 H Eos % (Auto) 0.5 Baso % (Auto) 0.2 Immature Gran # (Auto) 0.05 H Neut # (Auto) 8.15 H Lymph # (Auto) 1.18 L [place] # (Auto) 1.33 H Eos # (Auto) 0.05 Baso # (Auto) 0.02 Orders Category Date Time Status Saline Loc NOW Care 10/22/18 00:02 Active CHEST-PORTABLE [RAD] Stat Exams 10/22/18 00:03 Taken BLOOD CULTURE [BLDCUL] Stat Lab 10/22/18 00:17 Ordered BNP [PRO B-NATRIURETIC PEPTIDE] Stat Lab 10/22/18 00:17 Received CBC WITH DIFF [HEME] Stat Lab 10/22/18 00:17 Completed COMPREHENSIVE METABOLIC PANEL [CHEM] Stat Lab 10/22/18 00:17 Received LACTATE, PLASMA [CHEM] Stat Lab 10/22/18 00:17 Received TROPONIN T Stat Lab 10/22/18 00:17 Received 0.9% Sodium Chloride Inj [Ns] 1,000 ml Med 10/22/18 00:42 Active IV 999 mls/hr Pulse Oximetry Stat Oth 10/22/18 00:02 Active EKG [EKG] Stat Ther 10/22/18 00:02 Ordered Result Diagrams: 10/22/18 00:17 10/22/18 00:17 - EKG 1 Time of EKG reading by physician:: 00:14 EKG Read and Signed by:: Damon Marquez EKG Interpretation (*Must complete 3 of following elements*): Abnormal (Atrial fibrillation with rapid ventricular response with premature ventricular or aberrantly conducted complexes, ST&T wave abnormality, consider lateral ischemia, Abnormal ECG) Rate: 122 Rhythm: Atrial fibrillation Bolt: normal QRS: normal Departure - Departure Date of Disposition Decision: 10/22/18 Time of Disposition Decision: 02:11 DIAGNOSIS: Atrial fibrillation with RVR Disposition: ADMITTED INPATIENT 09 Certified Medical Emergency: Emergent Condition: Stable Referrals and Follow-Ups: Yancy Hudson MD [Primary Care Provider] - - Critical Care Note This patient required my direct & personal management of CC.: Yes Total Time (mins): 40 Critical Care Statement: This patient required my direct personal management to treat or rule out processes, the absence of which, could potentiallly result in sudden, clinically significant life or limb threatening deterioration. Attestation - Physician/ CARMEN Attestation Patient care was provided by Advanced Practice Provider:: No The physician spent face to face time with patient:: Yes Advanced Practice Provider documentation review:: Supervising physician onsite and consulted in the evaluation and care of this patient. The physician did have a face to face encounter with the patient. This chart was documented by the indicated scribe, (Harper Shelley Scribe) and accurately reflects the services I performed and decisions made by me, Damon Marquez MD, as attested by the provider's signature.
[2018-10-22] MEDS ORDERED: CARDIZEM 125 MG/D5W 125 MG/125 ML IVPB IV SCH (02:15)
[2018-10-22] MEDS: CARDIZEM 125 MG/D5W 125 MG/125 ML IVPB IV SCH ×3 (02:19→17:16)
--- NOTE | 2018-10-22 02:33 | EKG Report ---
Test Performed on : 10/22/2018 00:14:14 AM Test Reason : DYSPNEA Blood Pressure : / mmHG Vent. Rate : 122 BPM Atrial Rate : 111 BPM P-R Int : 000 ms QRS Dur : 070 ms QT Int : 306 ms P-R-T Axes : 000 022 212 degrees QTc Int : 436 ms Atrial fibrillation. with rapid ventricular response. with premature ventricular or aberrantly conduc anamaria complexes. ST & T wave abnormality, consider lateral ischemia Abnormal ECG When compared with ECG of 03-SEP-2018 10:55, ST now depressed in Anterolateral leads Nonspecific T wave abnormality, worse in Inferior leads T wave inversion now evident in Anterolateral leads Unconfirmed Result
[2018-10-22] MEDS ORDERED: LASIX IV SCH (04:45)
--- NOTE | 2018-10-22 05:05 | HISTORY AND PHYSICAL ---
PRIMARY CARE PHYSICIAN: Dr. Hudson. CHIEF COMPLAINT: Shortness of breath, low-grade temperature, coughing for the past several days. HISTORY OF PRESENTING ILLNESS: This is an 83-year-old elderly female with a history of hyperthyroidism, hypertension, recurrent UTI and B12 deficiency. Was just recently treated for pneumonia several months ago. States that she was having shortness of breath, low-grade temperature, coughing and not feeling well. She was evaluated in the emergency department where she was found to be in atrial fibrillation with RVR, and she was started on IV Cardizem and she will require admission for further management. At the time of my examination, she denied any headache, nausea, vomiting, diarrhea, chest pain, hemoptysis, melena, but complained of shortness of breath, coughing and not feeling well. PAST MEDICAL HISTORY: Includes hypertension, atrial fibrillation, recurrent UTI, B12 deficiency and hyperthyroidism. PAST SURGICAL HISTORY: Cholecystectomy, hysterectomy, tonsillectomy. ALLERGIES: No known drug allergies. CURRENT MEDICATIONS: Eliquis 2.5 mg p.o. daily, aspirin 81 mg p.o. daily, amlodipine 10 mg p.o. daily, Lexapro 10 mg p.o. daily, lamotrigine 40 mg p.o. daily, Tapazole 5 mg p.o. daily, metoprolol 50 mg p.o. daily. SOCIAL HISTORY: No history of smoking, alcohol or illicit drug use. FAMILY HISTORY: No history of coronary artery disease. REVIEW OF SYSTEMS: Fourteen point review of system as listed in HPI. Other systems negative. PHYSICAL EXAMINATION: GENERAL: Cooperative, friendly female. She is resting more comfortably now. VITAL SIGNS: Temperature 98.5 degrees, pulse 125, respiration 42, blood pressure 138/97. HEENT: Atraumatic, normocephalic. Extraocular movements intact. PERRLA. NECK: No masses. CHEST: Bibasilar rales. CARDIOVASCULAR: Irregular. ABDOMEN: Soft. Positive bowel sounds. EXTREMITIES: Trace edema. NEUROLOGIC: Awake, alert, oriented x2. GENITOURINARY: No bladder distention. SKIN: Warm. LABORATORIES AND STUDIES: WBCs 10.78, hemoglobin 10.4, hematocrit 31.4, platelets 293,000. Sodium 132, potassium 4.1, chloride 99, CO2 is 21, BUN is 20, creatinine is 1.1, glucose 136. ProBNP is 15,602. Troponin 0.010. ASSESSMENT: An 83-year-old female with a history of hypertension, atrial fibrillation, recurrent urinary tract infection, hyperthyroidism, who presented to emergency department with her heart racing. She was found to be in atrial fibrillation with rapid ventricular response. She was started on IV Cardizem and she will require admission for further management. 1. Atrial fibrillation with rapid ventricular response. 2. Suspected congestive heart failure exacerbation, unspecified. 3. Status post recent treatment for pneumonia. 4. Hyperthyroidism. 5. Hypertension. PLAN: 1. We will admit patient to ICU. 2. Continue patient on Cardizem drip. 3. Continue with gentle diuresis. Check echocardiogram and consult Cardiology. 4. We will check blood cultures. Start patient on empiric antibiotics. 5. Restart her medications for her hyperthyroidism. 6. Continue to monitor the patient's blood pressure closely. 7. Patient is on Eliquis and this will suffice for DVT prophylaxis. 8. We will continue to follow, and reassess and make further recommendation based on patient's clinical course. cc: MD Miguel Dao MD
[2018-10-22 05:22] LABS: URINE SOURCE CATH
[2018-10-22 05:35] LABS: BILIRUBIN URINE NEGATIVE (NEGATIVE); BLOOD URINE SMALL (NEGATIVE); COLOR ORANGE; GLUCOSE URINE NEGATIVE (NEGATIVE); KETONE URINE NEGATIVE (NEGATIVE); LEUKOCYTES URINE LARGE (NEGATIVE); NITRITE URINE POSITIVE (NEGATIVE); PH URINE 5.5; PROTEIN URINE 70 mg/dL (NEGATIVE); SP GRAVITY URINE 1.014; TURBIDITY URINE TURBID (CLEAR); UROBILINOGEN URINE NORMAL (NORMAL)
[2018-10-22] MEDS ORDERED: ATIVAN IV ONE (05:37)
[2018-10-22] MEDS ORDERED: TYLENOL PR PRN (05:37)
[2018-10-22 05:43] LABS: UR EPITHELIAL CELLS <10 /HPF (<10); URINE BACTERIA 4+ /HPF; URINE RBC <10 /HPF (<10); URINE WBC TNTC /HPF (<10)
[2018-10-22 06:22] LABS: URINE CASTS GRANULAR PRESENT; URINE CRYSTALS NONE SEEN; URINE SMALL ROUND CELLS NONE SEEN; URINE YEAST NONE SEEN
--- NOTE | 2018-10-22 07:28 | Diag Imaging Result Doc PS360 ---
CHEST-PORTABLE - 10/22/2018 INDICATION: possible pneumonia COMPARISON: 09/15/2018 FINDINGS: There is cardiomegaly and significant pulmonary vascular congestion. There is a dense focal infiltrate at the right hilum. No pneumothorax or significant pleural effusion. The PICC line has been removed. IMPRESSION: 1. Right perihilar infiltrate compatible with pneumonia or aspiration. 2. Cardiomegaly and pulmonary vascular congestion. Electronically signed by Shawn Benavides 10/22/2018 7:26 AM
[2018-10-22] MEDS ORDERED: STERILE WATER INJ. INJ PRN (08:57)
[2018-10-22] MEDS ORDERED: GEODON IM PRN (08:57)
[2018-10-22] MEDS ORDERED: LOPRESSOR PO SCH (09:00)
[2018-10-22] MEDS ORDERED: NORVASC PO SCH (09:00)
[2018-10-22] MEDS ORDERED: NEPHROCAPS PO SCH (09:00)
[2018-10-22] MEDS ORDERED: LEXAPRO PO SCH (09:00)
[2018-10-22] MEDS ORDERED: PEPCID PO SCH (09:00)
[2018-10-22] MEDS ORDERED: TAPAZOLE PO SCH (09:00)
[2018-10-22] MEDS ORDERED: ROCALTROL PO SCH (09:00)
[2018-10-22] MEDS ORDERED: CORDARONE 360 MG/D5W 360 MG/200 ML IV.SOLN IV ONE (10:13)
[2018-10-22] MEDS ORDERED: CORDARONE IV ONE (10:13)
[2018-10-22] MEDS ORDERED: LANOXIN IV ONE (10:15)
[2018-10-22] MEDS ORDERED: LOVENOX 1 MG/KG SUBQ SCH (10:30)
[2018-10-22] MEDS: PROTONIX IV SCH (10:44)
[2018-10-22] MEDS: LOVENOX SUBQ SCH (10:45)
--- NOTE | 2018-10-22 10:58 | CONSULTATION ---
DATE OF CONSULTATION: 10/22/2018 IMPRESSION: 1. Respiratory failure. 2. Abnormal chest x-ray, strongly suggesting aspiration in the right upper lobe and right middle lobe. Cannot exclude component of pulmonary edema. 3. Paroxysmal atrial fibrillation which has recurred with moderate tachycardia. 4. Hypertensive cardiovascular disease. 5. Recent treatment for aspiration pneumonia. 6. Status post fairly recent cholecystectomy. 7. Hyperthyroid state. Treatment recently initiated for this. RECOMMENDATIONS: 1. N.p.o. 2. Diurese with IV Lasix cautiously. 3. Continue intravenous Cardizem for rate control. We will add digoxin parenterally as well as p.r.n. metoprolol. 4. Avoid amiodarone given hyperthyroid state. 5. Ultimately she will need speech therapy evaluation before resuming oral intake. HISTORY: This is an 83-year-old white female with past history of hypertensive cardiovascular disease, episodes of atrial fibrillation, aspiration pneumonia, and cholecystectomy earlier this year, was admitted with cough, chest congestion, low-grade fever, and shortness of breath. She was found to be in atrial fibrillation with moderate tachycardia. Chest x-ray was also abnormal. She has been started on intravenous Cardizem and IV Lasix. She is on significant oxygen supplementation and continues with increased respiratory rate. She relates feeling tired, and she has had some confusion, necessitating some restraints and use of Geodon. There has been no chest pain. She actually has been eating fairly well of late without much difficulty. However, she has started to cough and chest congestion in the last day or so leading up to her current presentation. She has recently been found to be hyperthyroid and has been started on treatment for this. PAST MEDICAL HISTORY: 1. Paroxysmal atrial fibrillation. 2. Hypertensive cardiovascular disease. Left ventricular ejection fraction normal. 3. Hyperthyroidism, fairly recently discovered and treatment initiated. 4. Recurrent urinary tract infections. 5. B12 deficiency. PAST SURGICAL HISTORY: 1. Cholecystectomy. 2. Hysterectomy. 3. Tonsillectomy. ALLERGIES: She has no known drug allergies. MEDICATIONS PRIOR TO ADMISSION: As listed. She had been on low-dose Eliquis. She also had been on metoprolol. Eliquis dose prior to admission listed as 2.5 mg p.o. b.i.d., and metoprolol dose was listed as 50 mg p.o. b.i.d. She was also on methimazole 10 mg p.o. b.i.d. SOCIAL HISTORY: She has currently been living with her son since her recent medical issues. She does not smoke or use alcohol. She occasionally needs a walker for ambulation but has an aversion to using it very much. FAMILY HISTORY: Negative for premature coronary disease. REVIEW OF SYSTEMS: Not obtainable given the patient's respiratory difficulties currently. PHYSICAL EXAMINATION: General: This is a thin, older white female on supplemental oxygen per mask. She appears to be having some respiratory difficulty, with respiratory rate anywhere from 35 to 40 breaths a minute. Vital Signs: Blood pressure 124/70, heart rate 120 and irregular with ECG monitor showing atrial fibrillation. Oxygen saturation 96% on Venturi mask. HEENT: Extraocular movements appear intact. Mucous membranes are moist. Neck: Supple without discernible jugular distention. No carotid bruits. Chest: Auscultation of chest reveals audible rhonchi predominantly in the right anterior chest region. No rales could be appreciated. Cardiac: Irregular tachycardia without appreciable murmur or gallop. Abdomen: Soft. Bowel sounds are normal. Extremities: Without edema. PERTINENT DATA: Twelve lead EKG demonstrates atrial fibrillation with ventricular rate of 122 beats per minute. Occasional premature ventricular aberrantly conducted complex and nonspecific ST and T wave abnormality. Chest x-ray was reviewed and demonstrates a prominent infiltrate in right upper lobe and right middle lobe, suspicious for aspiration. Mild cardiomegaly suggested. Cannot exclude component of pulmonary edema. LABORATORY DATA: White blood cell count of 10.78, hematocrit 31.4, hemoglobin 10.4, platelet count 293,000. Sodium 132, potassium 4.1, chloride 99, carbon dioxide 21, BUN is 20, creatinine 1.1. Glucose 136. Albumin 2.9. Pro B-natriuretic peptide level 15,602. Troponin T less than 0.01. Catheter urinalysis demonstrates large amount of leukocytes, too numerous to count on microscopic. cc: MD Miguel Prescott MD
[2018-10-22] MEDS: ROCEPHIN 1 GM in NS 50 ML IV SCH (11:45)
[2018-10-22] MEDS ORDERED: LASIX IV ONE (12:20)
[2018-10-22] MEDS: HALDOL IV PRN (12:39)
[2018-10-22 12:53] LABS: BLOOD TYPE ARTERIAL; PCO2(98.6) 31 mmHg (35-45); SAMPLE BLOOD; pH(98.6) 7.41 (7.35-7.45)
[2018-10-22 12:54] LABS: HCO3-(ACT) 20.2 mmoll (20.0-26.0); PO2(98.6) 66 mmHg (60-100)
[2018-10-22 12:55] LABS: THB 10.2 g/dL (11.5-17.4)
[2018-10-22 12:56] LABS: ALLEN TEST YES; MODALITY VENTIMASK
--- NOTE | 2018-10-22 15:48 | PROGRESS NOTE ---
DATE: 10/22/2018 Ms. Levy admitted with cough, chest congestion, low-grade fever, shortness of breath. The patient is known case of paroxysmal atrial fibrillation, recent respiratory failure and aspiration pneumonia, hyperthyroidism, hypertension, recurrent UTI. The patient was doing fairly well. Last night, the patient had increasing cough, shortness of breath. The patient was brought to the emergency room and evaluated by ER physician. Patient found to have atrial fibrillation with rapid ventricular response. A chest x-ray did reveal possible pneumonia and/or pulmonary edema. The patient was admitted to ICU. The patient also found to have UTI. The patient is on IV antibiotics, IV Cardizem drip. The patient is doing fair. History part is limited. OBJECTIVE: Her vital signs noted. Patient is tachycardic. At times, tachypneic. Neck: Supple. No JVD. Lungs: Bibasilar crepitations, occasional wheezing. CVS: S1 and S2. Tachycardia. Abdomen: Soft, globular. Bowel sounds present. Extremities: No cyanosis, clubbing. No acute DVT. CARE TEAM COORDINATOR SCHEDULER: Patient is sleeping but arousable. PROBLEM LIST: 1. Atrial fibrillation with rapid ventricular response. 2. Respiratory failure. Chest x-ray suggestive of pneumonia. 3. Pulmonary edema. 4. Hyperthyroidism. 5. Vitamin B12 deficiency. PLAN: Her lab data noted. Drier Operator and job order clerk following patient with us. Overall plan and prognosis discussed with family. The patient was also found to have UTI. We will continue current treatment and close observation. cc: MD Miguel Bunn MD
--- NOTE | 2018-10-22 16:04 | CONSULTATION ---
DATE OF CONSULTATION: 10/22/2018 REQUESTING PROVIDER: Dr. Von Galdamez. REASON FOR CONSULTATION: Respiratory distress. HISTORY OF PRESENT ILLNESS: This is an 83-year-old female with a medical history of hyperthyroidism, hypertension, osteoarthritis, vitamin 12 deficiency, recurrent urinary tract infections and atrial fibrillation. Her last admission was from 09/02/2018 to 09/22/2018 with aspiration bronchopneumonia. During that hospital stay she required intubation from 09/06/2018 to 09/10/2018. She also was found with atrial fibrillation secondary to hyperthyroidism at the time. She presented to the ER via EMS last night with altered mental status and shortness of breath. Initial workup revealed atrial fibrillation with rapid ventricular response, suspected congestive heart failure exacerbation, likely aspiration pneumonia and urinary tract infection. She has been admitted to ICU for further evaluation and management. Patient currently is lying in bed with some cardiac and pulmonary distress. She is on a Ventimask with FiO2 50%. She has tachypnea with respiratory rate up to 30s and irregular tachycardia with heart rate to 140s. Oxygen saturation stays around 90s. Patient is kind of confused and drowsy. The patient's niece is at the bedside. She reports patient has some chronic cough and bilateral lower extremity swelling yesterday, but patient appeared normal until last night. PAST MEDICAL AND SURGICAL HISTORY: 1. Hyperthyroidism, diagnosed during last admission. 2. Hypertension. 3. Osteoarthritis . 4. Vitamin B12 deficiency. 5. Recurrent urinary tract infections. 6. Atrial fibrillation, secondary to hyperthyroidism. 7. Cholecystectomy by Dr. Wright on 08/29/2018 . 8. Thyroidectomy. The patient continued to have thyroid tissue on her CT scan indicated a incomplete thyroidectomy. 9. Hysterectomy. 10. Tonsillectomy. SOCIAL HISTORY: The patient currently lives at home with her eldest son. She has no history of alcohol, tobacco, or illicit drug use. FAMILY HISTORY: Reviewed and noncontributory. ALLERGIES: No known drug allergies. REVIEW OF SYSTEMS: Unable to be obtained. PHYSICAL EXAMINATION: Vital Signs: Temperature 100.1 degrees, blood pressure 124/103, pulse 120, respiratory rate 36, oxygen saturation 96% on Ventimask with FiO2 50%. General: Well developed, well nourished in some cardiac and pulmonary distress, appears confused and drowsy. HEENT: Normocephalic, atraumatic. Trachea midline. Mucosa pink and slightly dry. Respiratory: Labored and tachypnea with increased work of breathing, symmetrical excursion. Auscultation revealed rhonchi with inspiratory and expiratory wheezing on the anterior right chest. Cardiovascular: Irregular tachycardia, S1 and S2 noted. Gastrointestinal: Soft, nondistended, normoactive bowel sounds in all 4 quadrants. Extremities: No pedal edema, no cyanosis, no clubbing. Dorsalis pedis 2+ bilaterally. Neurologic: Confused and drowsy, not follow commands, not answering any questions at this time. LAB DATA: White blood cells 10.789, hemoglobin 10.4, hematocrit 31.4, platelet 293,000. Sodium 132, potassium 4.1, chloride 99, carbon dioxide 21, BUN 20, creatinine 1.1, glucose 136. ProBNP 15,602. ABG, pH 7.42, pCO2 31, PO2 66, HC03 20.2, base excess -4.0. IMAGING DATA: Chest x-ray revealed right perihilar infiltrate compatible with pneumonia or aspiration, cardiomegaly and pulmonary vascular congestion. ASSESSMENT: This is a 83-year-old female with a medical history of hyperthyroidism, hypertension, osteoarthritis, vitamin B12 deficiency, recurrent urinary tract infections and atrial fibrillation. She has been admitted to ICU with atrial fibrillation with rapid ventricular response, suspected congestive heart failure exacerbation, aspiration pneumonia and urinary tract infection. 1. Acute hypoxemic respiratory failure. 2. Aspiration pneumonia. 3. Atrial fibrillation with rapid ventricular response. 4. Suspected congestive heart failure exacerbation with significantly elevated proBNP. 5. Urinary tract infection. PLAN: 1. Continue supplemental oxygen. Start BiPAP at bedtime and as needed with oxygen protocol and heated humidifier. Will consider AC. mechanical ventilation if needed. 2. Continue antibiotic; continue diuretics as indicated. 3. Follow up with ABG, CBC, BMP, urine culture, blood culture and chest x-ray. 4. Continue GI and DVT prophylaxis. 5. Further recommendations pending hospital course. Thank you for courtesy of this consult. Dictated by JERICHO Curry for Gisselle Bonilla MD cc: JERICHO Curry MD Jagan Reddy, MD [facility]
[2018-10-22] MEDS ORDERED: CORDARONE 540 MG in D5W 289.2 ML IV ONE (16:14)
[2018-10-22] MEDS: FLAGYL 500 MG/NS 500 MG/100 ML IVPB IV SCH (17:00)
[2018-10-23] MEDS: FLAGYL 500 MG/NS 500 MG/100 ML IVPB IV SCH ×3 (00:12→15:28)
[2018-10-23] MEDS ORDERED: VASELINE TOP PRN (00:53)
[2018-10-23] MEDS: CARDIZEM 125 MG/D5W 125 MG/125 ML IVPB IV SCH ×3 (03:30→23:27)
[2018-10-23 04:42] LABS: ALLEN TEST YES; BE 0.7 mmoll (-3.0-3.0); BLOOD TYPE ARTERIAL; HCO3-(ACT) 25.5 mmoll (20.0-26.0); METHB 1.3 % (0.0-1.5); O2(CT) 14.5 mL/dL (15.0-23.0); PCO2(98.6) 33 mmHg (35-45); PO2(98.6) 146 mmHg (60-100); SAMPLE BLOOD; SAO2 99.2 % (95.0-100.0); THB 10.4 g/dL (11.5-17.4); pH(98.6) 7.47 (7.35-7.45)
[2018-10-23 04:44] LABS: MODALITY VENTIMASK
[2018-10-23 06:42] LABS: BASO# 0.02 X1000 (0.0-0.2); BASO% 0.2 % (0.0-0.8); EOS# 0.07 X1000 (0.0-0.7); EOS% 0.7 % (0.0-10.0); HEMATOCRIT 30.4 % (37.0-47.0); LYMPH# 1.07 X1000 (1.2-3.4); LYMPH% 11.1 % (20.5-51.1); MCH 27.9 PG (27-31); MCHC 32.9 g/dL (33-37); MCV 84.7 FL (81-99); MONO# 0.75 X1000 (0.11-0.59); MONO% 7.7 % (1.7-9.3); MPV 10.8 FL (7.4-10.4); NEUT# 7.77 X1000 (1.4-6.5); NEUT% 80.3 % (42.2-75.2); PLT 293 X1000 (130-400); RBC 3.59 XMIL (4.2-5.4); RDW 14.9 % (11.5-14.5); WBC 9.68 X1000 (4.8-10.8)
[2018-10-23 07:19] LABS: CALCIUM 7.6 mg/dL (8.8-10.2); CREATININE 1.2 mg/dL (0.5-0.9); POTASSIUM 3.2 mmol/L (3.5-5.1)
--- NOTE | 2018-10-23 07:30 | Diag Imaging Result Doc PS360 ---
EXAM: CHEST-1 VIEW INDICATION: SOB TECHNIQUE: One view COMPARISON: 10/22/2018 FINDINGS: Pulmonary venous congestion as well as the dense right perihilar infiltrate are approximately stable. No new consolidation is identified. Cardiac silhouette is stable. IMPRESSION: Stable chest. Electronically signed by Christian Sanchez 10/23/2018 7:28 AM
[2018-10-23] MEDS ORDERED: CALMOSEPTINE OINTMENT TOP PRN (07:38)
[2018-10-23] MEDS: LASIX IV SCH (08:30)
[2018-10-23] MEDS: POTASSIUM CHLORIDE 20 MEQ/SWI 20 MEQ/100 ML IVPB IV SCH ×2 (08:32→10:53)
[2018-10-23] MEDS: CLINIMIX E 4.25%-5% SOLUTION 1,000 ML IV SCH (08:40)
[2018-10-23] MEDS ORDERED: LANOXIN IV ONE (08:40)
[2018-10-23 09:36] LABS: INR 1.43; PROTIME 17.7 Seconds (11.0-16.0)
[2018-10-23] MEDS ORDERED: NS 250 ML ONE (09:55)
[2018-10-23] MEDS: PROTONIX IV SCH (10:55)
[2018-10-23] MEDS: LOVENOX SUBQ SCH ×2 (10:55→22:43)
[2018-10-23] MEDS: SODIUM CHLORIDE 0.9% INJ SCH (10:55)
[2018-10-23] MEDS: ROCEPHIN 1 GM in NS 50 ML IV SCH (10:55)
[2018-10-23] MEDS: HALDOL IV PRN (11:00)
--- NOTE | 2018-10-23 11:04 | Diag Imaging Result Doc PS360 ---
EXAM: CHEST-PORTABLE 10/23/2018 HISTORY: PICC placement TECHNIQUE: AP portable at 1054 COMMENT: There is volume loss in the right upper lobe with opacity inferiorly and generalized increased interstitial opacity in perihilar opacity on the left side. These findings were also present on 10/23/2018 at 0519. There is a PICC line on the right with its tip in the superior vena cava. The inspiration is generally better than on the previous study. IMPRESSION: Pulmonary edema and/or pneumonia, particularly in the right upper lobe. Electronically signed by Pramod Pham 10/23/2018 11:02 AM
[2018-10-23] MEDS ORDERED: LASIX IV ONE (12:53)
[2018-10-23] MEDS ORDERED: POTASSIUM CHLORIDE 40 MEQ/SWI 40 MEQ/100 ML IVPB IV ONE (13:00)
--- NOTE | 2018-10-23 14:15 | PROGRESS NOTE ---
DATE: 10/23/2018 SUBJECTIVE: Patient continues with some shortness of breath and chest congestion. She continues to feel weak. There has been no chest pain. OBJECTIVE: Blood pressure 126/71, heart rate 120 and irregular with ECG monitor showing atrial fibrillation. Respiratory rate 40. Oxygen saturation 93% on nasal cannula oxygen at 4 L/minute. There is no significant jugular venous distention. Lungs: Auscultation of chest reveals prominent scattered rhonchi. Cardiac: Exam reveals an irregular tachycardia without appreciable murmur or gallop. There is no evidence of peripheral edema. LABORATORY DATA: Includes a white blood cell count of 9.68, hematocrit 30.4, hemoglobin 10, and platelet count 293,000. Sodium 135, potassium 3.2. Chloride 100. Carbon dioxide 22, BUN 22, creatinine 1.2, and glucose 108. IMPRESSION: 1. Respiratory failure. 2. Aspiration pneumonitis. 3. Possible pulmonary edema. 4. Recurrent atrial fibrillation with moderate tachycardia despite current regimen. 5. Hypertensive cardiovascular disease. 6. Hyperthyroid state. RECOMMENDATIONS: 1. Resume metoprolol 50 mg p.o. b.i.d. as tolerated. 2. Continue to manage with rate control and anticoagulation for now. 3. Repeat TSH. 4. Diurese as you are doing. cc: MD Miguel Prescott MD
--- NOTE | 2018-10-23 14:50 | Diag Imaging Result Doc PS360 ---
EXAM: BA SWALLOW W/VIDEO SPEECH THER 10/23/2018 HISTORY: aspiration pneumonia TECHNIQUE: 92 images, 35 mGy, 18 seconds fluoroscopy time. COMMENT: Patient was able to swallow barium without difficulty and without evidence of aspiration. There is no evidence of stricture or obstruction in the distal esophagus. IMPRESSION: No evidence of aspiration or obstruction. Electronically signed by Pramod Pham 10/23/2018 2:48 PM
[2018-10-23] MEDS: LOPRESSOR PO SCH ×2 (15:28→20:02)
[2018-10-23] MEDS ORDERED: BLISTEX MEDICATED BERRY LIP BALM TOP PRN (17:06)
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
[2018-10-24] MEDS: FLAGYL 500 MG/NS 500 MG/100 ML IVPB IV SCH ×3 (00:18→16:00)
[2018-10-24] MEDS: CLINIMIX E 4.25%-5% SOLUTION 1,000 ML IV SCH ×2 (00:18→16:32)
[2018-10-24 04:32] LABS: BLOOD TYPE ARTERIAL; SAMPLE BLOOD
[2018-10-24 04:33] LABS: ALLEN TEST YES; BE 0.4 mmoll (-3.0-3.0); HCO3-(ACT) 25.1 mmoll (20.0-26.0); METHB 0.9 % (0.0-1.5); O2(CT) 18.2 mL/dL (15.0-23.0); O2HB 92.6 % (95.0-99.0); PCO2(98.6) 31 mmHg (35-45); PO2(98.6) 63 mmHg (60-100); SAO2 94.8 % (95.0-100.0); pH(98.6) 7.48 (7.35-7.45)
[2018-10-24 04:35] LABS: MODALITY CANNULA
[2018-10-24 05:03] LABS: BASO# 0.02 X1000 (0.0-0.2); BASO% 0.2 % (0.0-0.8); EOS# 0.05 X1000 (0.0-0.7); EOS% 0.5 % (0.0-10.0); HEMATOCRIT 29.6 % (37.0-47.0); HEMOGLOBIN 9.8 g/dL (12.0-16.0); IMM GRAN# 0.07 X1000 (0.0-0.04); IMM GRAN% 0.7 % (0.0-0.5); LYMPH% 13.2 % (20.5-51.1); MCH 27.7 PG (27-31); MCHC 33.1 g/dL (33-37); MCV 83.6 FL (81-99); MONO% 8.1 % (1.7-9.3); MPV 10.7 FL (7.4-10.4); NEUT# 7.61 X1000 (1.4-6.5); NEUT% 77.3 % (42.2-75.2); PLT 322 X1000 (130-400); RBC 3.54 XMIL (4.2-5.4); RDW 14.6 % (11.5-14.5); WBC 9.85 X1000 (4.8-10.8)
[2018-10-24 05:18] LABS: POTASSIUM 3.4 mmol/L (3.5-5.1)
[2018-10-24 05:19] LABS: CALCIUM 7.6 mg/dL (8.8-10.2); CREATININE 1.1 mg/dL (0.5-0.9)
[2018-10-24 05:25] LABS: TSH 0.01 uIUmL (0.27-4.20)
[2018-10-24 05:51] LABS: FREE T4 2.13 ng/dL (0.93-1.70)
[2018-10-24] MEDS ORDERED: POTASSIUM CHLORIDE 20% LIQUID PO ONE (07:06)
--- NOTE | 2018-10-24 07:39 | Diag Imaging Result Doc PS360 ---
EXAM: CHEST-1 VIEW 10/24/2018 HISTORY: SOB TECHNIQUE: AP portable at 0534 COMMENT: There is perihilar opacity bilaterally with volume loss in the right upper lobe. There is generally increased interstitial opacity. The lungs are not as well-expanded as on the previous study of 10/23/2018, however, there has been no significant change otherwise. The right PICC line remains with its tip just above the right atrium. IMPRESSION: Pulmonary edema and/or pneumonia. Electronically signed by Pramod Pham 10/24/2018 7:37 AM
[2018-10-24] MEDS ORDERED: TAPAZOLE PO ONE (07:47)
[2018-10-24] MEDS: MAG-OX PO SCH ×3 (08:32→20:17)
[2018-10-24] MEDS: LOPRESSOR PO SCH ×2 (08:32→20:17)
[2018-10-24] MEDS: LASIX IV SCH (08:32)
[2018-10-24] MEDS: ZOSYN 3.375 GM in NS 50 ML IV SCH ×3 (08:39→20:17)
[2018-10-24] MEDS: TAPAZOLE PO SCH ×2 (09:03→20:17)
[2018-10-24 09:08] LABS: IRON SATURATION 15 %; TIBC 130 ug/dL; TOTAL IRON 20 ug/dL (49-151); UNBOUND IRON 110 ug/dL (112-346)
--- NOTE | 2018-10-24 09:39 | GASTROENTEROLOGY CONSULTATION ---
DATE: 10/24/2018 REASON FOR CONSULTATION: Evaluate for dysphagia. HISTORY OF PRESENT ILLNESS: Ms. Jennifer Levy is an 83-year-old woman with past medical history of hypertension, B 12 deficiency, hypothyroidism, atrial fibrillation on Eliquis and prior hospitalization for pneumonia, who represents with shortness of breath, fever, found to have probable aspiration pneumonia. The patient was seen in consultation with Cardiology for evaluation of congestive heart failure. She had a workup that included a modified barium swallow that showed no evidence of aspiration or obstruction. Speech therapist noted that she had extensive stasis observed in the distal esophagus. However, there was no evidence of stricture or mass seen on imaging. The patient was started on Protonix 40 mg IV twice daily. This morning she is lethargic, arousable, able to answer simple questions. She denies history of dysphagia, nausea, vomiting, abdominal pain. No chest pain. Her shortness of breath is improving. She had a colonoscopy with Dr. Bowman in 2016 that showed diverticulosis. No documented EGD in the past. REVIEW OF SYSTEMS: Limited secondary to lethargy and the patient being not cooperative with interview. PAST MEDICAL HISTORY: As per HPI. Other history includes recurrent UTIs, osteoarthritis. PAST SURGICAL HISTORY: Cholecystectomy in August of 2018, hysterectomy, incomplete thyroidectomy, tonsillectomy. MEDICATIONS: Eliquis, aspirin, amlodipine, Lexapro, lamotrigine, Tapazole, metoprolol. ALLERGIES: No known drug allergies. FAMILY HISTORY: No family history of GI malignancies. SOCIAL HISTORY: No smoking, alcohol or drug use. PHYSICAL EXAMINATION: Vital Signs: Temperature is 98.2, heart rate of 91, respiratory rate of 28, blood pressure 105/53, O2 saturation 96% on 4 L nasal cannula. General: Patient is a lethargic, semi arousable, answers appropriately to simple questions. HEENT: Sclerae anicteric. Moist mucous membranes. Neck: Supple. No JVD. Cardiac: Irregularly irregular. No murmurs. Lungs: Clear to auscultation bilaterally anteriorly. Abdomen: Soft, nontender, nondistended. Normoactive bowel sounds. No rebound or guarding. Extremities: No clubbing, cyanosis, or edema. Neurologic: The patient is moving extremities spontaneously bilaterally. Dickson is in place, draining clear yellow urine. Skin: Warm and well perfused. No obvious rashes. LABS: White count of 9.8, hemoglobin is stable at 9.8, MCV of 83.6, platelets of 322. INR of 1.43. ABG with pH of 7.48, PO2 of 63, pCO2 of 31. Sodium of 125, potassium of 3.4, chloride of 94, bicarbonate 22. BUN of 28, creatinine of 1.1. ProBNP from 10/22 showed 15,602, TSH of 0.01. UA showed positive nitrites, blood and large leukocytes. Urine cultures positive for Klebsiella pneumoniae. X-RAYS: Chest x-ray from this morning shows pulmonary edema and/or pneumonia. Modified barium swallow as per HPI. ASSESSMENT AND PLAN: 1. Ms. Jennifer Levy is an 83-year-old woman with past medical history of atrial fibrillation on Eliquis, recurrent urinary tract infections and prior admission for pneumonia, who represents with acute respiratory distress, found to have aspiration pneumonia versus congestive heart failure exacerbation. Her labs are notable for normocytic anemia that is stable. She does have a history of B 12 deficiency in the past. We will check her iron studies, B 12 and folate at this time. She does not have any signs of overt gastrointestinal bleeding. I recommend against checking Hemoccults. She is tolerating therapeutic Lovenox at this time. 2. Dysphagia. The patient denies any dysphagia or nausea or vomiting. She had a modified barium swallow that did not show any evidence of oropharyngeal dysphagia or esophageal strictures or obstruction. There was some stasis in her esophagus, which could be related to possibly motility disorder; however, again she denies any dysphagia. Continue mechanical soft diet and transition proton pump inhibitor to oral 40 mg once daily. If her iron studies show evidence of iron deficiency anemia, the patient would warrant repeat esophagogastroduodenoscopy and colonoscopy once patient is stable from a respiratory standpoint. 3. Hyponatremia. The patient is receiving diuresis aggressively with intravenous Lasix. I suspect that she has hypovolemic hyponatremia. Consider gentle diuresis and repleting her with intravenous fluids if possible. She does have an elevated BUN:creatinine ratio which would support volume depletion. 4. Klebsiella pneumoniae urinary tract infection. The patient is currently on Zosyn antibiotics. Defer management to primary team. Thank you for this consult. We will follow with you. Please call with any questions or concerns. Dictated by Chintan Sprague MD for Karla Hudson MD cc: Miguel Hudson MD
[2018-10-24 10:12] LABS: FERRITIN 286 ng/mL (13-150)
[2018-10-24] MEDS: SODIUM CHLORIDE 0.9% INJ SCH (10:24)
[2018-10-24] MEDS: LOVENOX SUBQ SCH ×2 (10:24→22:07)
[2018-10-24] MEDS: PROTONIX IV SCH (10:24)
[2018-10-24] MEDS: SOLU-MEDROL IV SCH ×3 (10:37→22:07)
--- NOTE | 2018-10-24 15:04 | PROGRESS NOTE ---
DATE: 10/24/2018 SUBJECTIVE: Patient continues with mild shortness of breath on supplemental oxygen per nasal cannula presently. There has been no chest pain. OBJECTIVE: Vital Signs: Blood pressure 125/73, heart rate 69 and regular, and respiratory rate 30. Oxygen saturation 95% on nasal cannula oxygen at 4 L/minute. Neck: Jugular venous distention cannot be appreciated. Lungs: Chest is clear to auscultation anteriorly. Auscultation of the chest reveals scattered expiratory wheezes and rhonchi. Cardiac: Exam reveals an irregular rate and rhythm without appreciable murmur or gallop. There is no evidence of peripheral edema. LABORATORY DATA: Includes white blood cell count 9.85, hematocrit 29.6, hemoglobin 9.8, and platelet count 322,000. Sodium 125, potassium 3.4, chloride 94, carbon dioxide 22, BUN 28, and creatinine 1.1. Glucose 136. TSH 0.01. IMPRESSION: 1. Respiratory failure. 2. Aspiration pneumonitis. 3. Component of congestive heart failure suspected. Patient improving with diuresis. 4. Recurrent atrial fibrillation in the setting of hyperthyroidism. Heart rate now better controlled with resumption of beta-joaquim. 5. Hypertensive cardiovascular disease. 6. Hyperthyroidism. RECOMMENDATIONS: 1. Continue metoprolol 50 mg twice daily. 2. Discontinue IV diltiazem. 3. Continue anticoagulation. 4. Prerenal azotemia emerging, consider limiting further diuresis. cc: MD Miguel Prescott MD
--- NOTE | 2018-10-24 21:32 | PROGRESS NOTE ---
DATE: 10/24/2018 SUBJECTIVE: The patient is a little bit sleepy and swallowing studies reviewed. Started on a diet. A PICC line was placed on the right side. Still in atrial fibrillation. Hemodynamics were stable. Complains of loose bowel movements. PHYSICAL EXAMINATION: Vital signs: Temperature is 97 degrees, pulse is 84, blood pressure is stable, 4 L nasal cannula at 95%. Chest: Bilateral crackles. Cardiovascular: Irregular heart sounds. Abdomen: Belly is soft, nontender. Genitourinary: Dickson was placed. INVESTIGATIONS: CBC: White cell count 9.8, hematocrit 29, platelets 322,000. ABG: pH is 7.48, pCO2 31, pO2 63 on 36%. Sodium 125, potassium 3.4, BUN 28, creatinine 1.1. Ferritin is high. B12 is normal. Free T4 still high. Urinalysis positive for infection due to Klebsiella. Blood cultures are negative. ASSESSMENT AND PLAN: 1. Altered mental status due to metabolic encephalopathy. 2. Chronic atrial fibrillation as per Dr. Galdamez. Currently patient is on Lovenox, rate control with Cardizem 5 mg/hour and started on metoprolol 50 mg p.o. b.i.d. 3. Hypothyroidism. Previous antibody tests were negative for Graves and hashitoxicosis. Radioactive iodine uptake is normal, not responding with methimazole. Consider struma ovarii, but previous CT of the abdomen and pelvis, no teratoma noted. 4. Urinary tract infection due to Klebsiella, currently on IV Zosyn. 5. Diarrhea due to excoriation of the skin. We will place the rectal tube, rule out C difficile colitis. 6. Continue on IV Flagyl. 7. Status post PICC line on the right side. Continue on IV Clinimix. 8. Right upper lobe pneumonia. Also continue on Zosyn, incentive spirometry. 9. No family is around. We will follow up. LEVEL OF DOCUMENTATION: 35 minutes. cc: Miguel Hudson MD
[2018-10-25] MEDS: FLAGYL 500 MG/NS 500 MG/100 ML IVPB IV SCH ×4 (00:45→23:17)
[2018-10-25] MEDS: ZOSYN 3.375 GM in NS 50 ML IV SCH ×4 (01:48→20:18)
[2018-10-25] MEDS: MAG-OX PO SCH (02:49)
[2018-10-25 04:46] LABS: BLOOD TYPE ARTERIAL; SAMPLE BLOOD
[2018-10-25 04:47] LABS: ALLEN TEST YES; BE 1.5 mmoll (-3.0-3.0); HCO3-(ACT) 26.1 mmoll (20.0-26.0); METHB 1.7 % (0.0-1.5); MODALITY CANNULA; O2(CT) 14.8 mL/dL (15.0-23.0); O2HB 95.7 % (95.0-99.0); PCO2(98.6) 31 mmHg (35-45); PO2(98.6) 91 mmHg (60-100); SAO2 98.4 % (95.0-100.0); THB 10.9 g/dL (11.5-17.4)
[2018-10-25 04:50] LABS: CALCIUM 8.1 mg/dL (8.8-10.2); CREATININE 1.1 mg/dL (0.5-0.9); MAGNESIUM 1.9 mg/dL (1.5-2.7); POTASSIUM 3.5 mmol/L (3.5-5.1)
[2018-10-25 04:52] LABS: BASO# 0.02 X1000 (0.0-0.2); BASO% 0.5 % (0.0-0.8); HEMATOCRIT 30.9 % (37.0-47.0); HEMOGLOBIN 10.3 g/dL (12.0-16.0); IMM GRAN# 0.06 X1000 (0.0-0.04); IMM GRAN% 1.5 % (0.0-0.5); LYMPH# 0.71 X1000 (1.2-3.4); LYMPH% 17.9 % (20.5-51.1); MCH 27.4 PG (27-31); MCHC 33.3 g/dL (33-37); MCV 82.2 FL (81-99); MONO# 0.22 X1000 (0.11-0.59); MONO% 5.6 % (1.7-9.3); MPV 10.2 FL (7.4-10.4); NEUT# 2.95 X1000 (1.4-6.5); NEUT% 74.5 % (42.2-75.2); PLT 310 X1000 (130-400); RBC 3.76 XMIL (4.2-5.4); RDW 14.4 % (11.5-14.5); WBC 3.96 X1000 (4.8-10.8)
--- NOTE | 2018-10-25 06:35 | Diag Imaging Result Doc PS360 ---
CHEST-1 VIEW - 10/25/2018 INDICATION: SOB COMPARISON: 10/24/2018 FINDINGS: Stable right PICC line in good position. Stable cardiomegaly. There has been significant improvement in the left infrahilar are alveolar infiltrate. Stable focal infiltrate in the right upper lobe near the hilum. No new abnormalities. No large pleural effusion. IMPRESSION: Improvement in the left infrahilar infiltrate. Electronically signed by Shawn Benavides 10/25/2018 6:33 AM
[2018-10-25 07:03] LABS: LYMPHS 13 % (21-51); MONO 3 % (1-9); SEGS 81 % (42-75)
[2018-10-25 07:04] LABS: ANISOCYTOSIS OCCASIONAL; HYPOCHROM 1+
[2018-10-25] MEDS: LASIX IV SCH (08:04)
[2018-10-25] MEDS: TAPAZOLE PO SCH ×2 (08:05→20:18)
[2018-10-25] MEDS: LOPRESSOR PO SCH ×2 (08:05→20:18)
[2018-10-25] MEDS: SOLU-MEDROL IV SCH ×2 (08:05→20:18)
[2018-10-25] MEDS: SODIUM CHLORIDE 0.9% INJ SCH (11:03)
[2018-10-25] MEDS: CLINIMIX E 4.25%-5% SOLUTION 1,000 ML IV SCH (11:03)
[2018-10-25] MEDS: LOVENOX SUBQ SCH ×2 (11:03→23:17)
[2018-10-25] MEDS: PROTONIX IV SCH (11:03)
--- NOTE | 2018-10-25 12:36 | PROGRESS NOTE ---
DATE: 10/25/2018 SUBJECTIVE: The patient is sleeping presently and reportedly was awake all night, somewhat agitated. OBJECTIVE: Vital Signs: Blood pressure 113/69, heart rate 86 and irregular with ECG monitor showing atrial fibrillation. Oxygen saturation 97% on nasal cannula oxygen at 4 L/minute. Chest: Clear to auscultation anteriorly. Cardiac: Reveals an irregular rate and rhythm without appreciable murmur or gallop. There is no evidence of peripheral edema. LABORATORY DATA: Includes a white blood cell count of 3.96, hematocrit 30.9, hemoglobin. 10.3, platelet count 310,000. Sodium 126, potassium 3.5, chloride 95, carbon dioxide 22, BUN 32, creatinine 1.1, glucose 197. IMPRESSION: 1. Respiratory failure, improving. 2. Aspiration pneumonitis. 3. Component of pulmonary edema suspected, which appears to have improved with diuresis. 4. Recurrent atrial fibrillation in the setting of hyperthyroidism. Heart rate better controlled with resumption of beta joaquim. 5. Hypertensive cardiovascular disease. 6. Hyperthyroidism. RECOMMENDATIONS: 1. Continue metoprolol 50 mg p.o. b.i.d. 2. Continue anticoagulation as tolerated. 3. No further diuresis appears needed at this point. cc: MD Miguel Prescott MD
[2018-10-25] MEDS: HALDOL IV PRN (13:29)
--- NOTE | 2018-10-25 21:38 | PROGRESS NOTE ---
DATE: 10/25/2018 SUBJECTIVE: The patient is stable. She is off Ventimask. Cardizem drip is stopped. Rectal tube was inserted. C difficile antigen positive. Currently, patient is on Flagyl and chest x-ray is improving. She is appears to be depressed. PHYSICAL EXAMINATION: Vital Signs: Temperature is 98 degrees, pulse 91. Vitals are stable. HEENT: Within normal limits. Lungs: Decreased rhonchi. Heart: Irregular heart sounds. Abdomen: Belly is soft, nontender. PICC line on the right side is noted. : Dickson and rectal tube were inserted. Neurologic: No neurological deficits. INVESTIGATIONS: CBC: White cell count 3.9, hematocrit 30.9, platelets 310,000. ABG: pH is 7.50, pCO2 31, pO2 91. SMA 7: Sodium 126, potassium 3.5, chloride 95, BUN 32, creatinine 1.1. Free T4 is still high. Urine cultures are Klebsiella. ASSESSMENT AND PLAN: 1. Altered mental status, improving. 2. Chronic atrial fibrillation, rate controlled, anticoagulation, with beta blockers, off Cardizem drip. 3. Hypothyroidism, on methimazole. Still not euthyroid. Previous workup was negative. I did review with the radiologist the CT of the belly. I could not find exogenous thyroid production like stroma. 4. Diarrhea of rectal tube. Clostridium difficile antigen positive, but white blood cell count and Clostridium difficile toxin negative. Continue on intravenous Flagyl. 5. Urinary tract infection, on intravenous Zosyn. 6. Aspiration pneumonia, improving. Decreased intravenous steroids. 7. Dehydration. Continue intravenous Clinimix for nutritional. 8. If she is stable, will transfer to stepdown. Continue present treatment. Repeat the labs in the morning. LEVEL OF DOCUMENTATION: 25 minutes. cc: Miguel Hudson MD
--- NOTE | 2018-10-25 23:43 | PROVIDER PROGRESS NOTE ---
Progress Note S: Patient has had copious diarrhea overnight requiring rectal tube placement. She denies abdominal pain, N/V, dysphagia. SOB improving. O: Last Vital Signs Temp 98.2 F 10/25/18 19:46 Pulse 85 10/25/18 22:02 Resp 23 10/25/18 22:02 BP 141/74 10/25/18 22:02 Pulse Ox 95 10/25/18 22:02 Height 5 ft 5 in Weight 139 lb 9.6 oz GEN: awake, NAD HEENT: anicteric, MMM NECK: supple, no jvd PULM: CTAB, no wheezing ABD: soft NT/ND, BS+ EXT: no cce NEURO: nonfocal LABS: 10/25/18 10/25/18 10/25/18 04:10 04:10 04:40 WBC 3.96 L Hgb 10.3 L Plt Count 310 pH 7.50 H pCO2 31 L pO2 91 Sodium 126 L Potassium 3.5 Chloride 95 L Carbon Dioxide 22 L BUN 32 H Creatinine 1.1 H Glucose 197 H Cdiff Ag+ A/P: Ms. Jennifer Levy is an 83-year-old woman with past medical history of atrial fibrillation on Eliquis, recurrent urinary tract infections and prior admission for pneumonia, who represents with acute respiratory distress, found to have aspiration pneumonia +/- congestive heart failure exacerbation. Found to have K pneumo UTI. Course complicated by hyponatremia and Cdiff infection. GI consulted for concern for possible dysphagia. She is tolerating mechanical soft diet. 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 # Dysphagia: continue PPI and mechanical soft diet as tolerated # Aspiration pneumonia: on abx per primary; consider stopping steroids given absence of obstructive airway disease or adrenal insufficiency # Hypovolemic hypnatremia: s/p duiresis # Cdiff: switched IV flagyl to PO vancomycin 125mg PO QID; monitor stool output # K pneumoniae UTI: abx per primary # Anemia: stable; no overt bleeding Will follow with you. Please call with questions
[2018-10-26] MEDS: VANCOCIN PO SCH ×4 (02:58→20:20)
[2018-10-26] MEDS: CLINIMIX E 4.25%-5% SOLUTION 1,000 ML IV SCH ×2 (02:59→20:19)
[2018-10-26] MEDS: ZOSYN 3.375 GM in NS 50 ML IV SCH ×4 (02:59→20:19)
[2018-10-26 04:42] LABS: BLOOD TYPE ARTERIAL; SAMPLE BLOOD
[2018-10-26 04:43] LABS: ALLEN TEST YES; BE 5.4 mmoll (-3.0-3.0); HCO3-(ACT) 29.1 mmoll (20.0-26.0); METHB 1.1 % (0.0-1.5); O2(CT) 17.4 mL/dL (15.0-23.0); O2HB 94.3 % (95.0-99.0); PCO2(98.6) 38 mmHg (35-45); PO2(98.6) 70 mmHg (60-100); SAO2 96.7 % (95.0-100.0); THB 13.1 g/dL (11.5-17.4); pH(98.6) 7.49 (7.35-7.45)
[2018-10-26 04:45] LABS: MODALITY CANNULA
[2018-10-26 05:27] LABS: BASO# 0.02 X1000 (0.0-0.2); BASO% 0.4 % (0.0-0.8); HEMATOCRIT 32.1 % (37.0-47.0); HEMOGLOBIN 10.7 g/dL (12.0-16.0); IMM GRAN# 0.13 X1000 (0.0-0.04); IMM GRAN% 2.7 % (0.0-0.5); LYMPH# 0.56 X1000 (1.2-3.4); LYMPH% 11.8 % (20.5-51.1); MCH 27.6 PG (27-31); MCHC 33.3 g/dL (33-37); MCV 82.7 FL (81-99); MONO# 0.36 X1000 (0.11-0.59); MONO% 7.6 % (1.7-9.3); MPV 10.4 FL (7.4-10.4); NEUT# 3.67 X1000 (1.4-6.5); NEUT% 77.5 % (42.2-75.2); PLT 332 X1000 (130-400); RBC 3.88 XMIL (4.2-5.4); RDW 14.4 % (11.5-14.5); WBC 4.74 X1000 (4.8-10.8)
[2018-10-26 05:40] LABS: AGAP 14; BUN 36 mg/dL (8-22); CALCIUM 7.3 mg/dL (8.8-10.2); CHLORIDE 97 mmol/L (98-107); COSMO 288; CREATININE 0.8 mg/dL (0.5-0.9); ESTIMATED GFR > 60; GLUCOSE 239 mg/dL (70-104); POTASSIUM 3.1 mmol/L (3.5-5.1); SODIUM 136 mmol/L (136-145); TCO2 25 mmol/L (25-35)
[2018-10-26] MEDS: POTASSIUM CHLORIDE 20 MEQ/SWI 20 MEQ/100 ML IVPB IV SCH ×2 (05:59→08:12)
--- NOTE | 2018-10-26 07:13 | Diag Imaging Result Doc PS360 ---
EXAM: CHEST-1 VIEW 10/26/2018 HISTORY: SOB TECHNIQUE: AP portable at 0520 COMMENT: There is improvement in the opacity in the lower portion of the right upper lobe compared to 10/25/2018. Otherwise are has been little apparent change. IMPRESSION: Slight improvement in right upper lobe pneumonia. Electronically signed by Pramod Pham 10/26/2018 7:11 AM
[2018-10-26] MEDS: TAPAZOLE PO SCH ×2 (08:05→20:20)
[2018-10-26] MEDS: LOPRESSOR PO SCH ×2 (08:11→20:20)
[2018-10-26] MEDS: LASIX IV SCH (08:11)
[2018-10-26] MEDS: SOLU-MEDROL IV SCH ×2 (08:11→20:19)
[2018-10-26] MEDS ORDERED: S2 RACEPINEPHRINE 2.25% ONE ×2 (08:43→08:44)
[2018-10-26] MEDS: LOVENOX SUBQ SCH ×2 (11:32→23:17)
[2018-10-26] MEDS: PROTONIX IV SCH (11:32)
[2018-10-26] MEDS: SODIUM CHLORIDE 0.9% INJ SCH (11:32)
[2018-10-26 12:50] LABS: CALCIUM 7.5 mg/dL (8.8-10.2); CREATININE 0.9 mg/dL (0.5-0.9); POTASSIUM 3.4 mmol/L (3.5-5.1)
[2018-10-26] MEDS ORDERED: POTASSIUM CHLORIDE 40 MEQ/SWI 40 MEQ/100 ML IVPB IV ONE ×2 (12:58→20:00)
--- NOTE | 2018-10-26 15:04 | GASTROENTEROLOGY PROGRESS NOTE ---
DATE: 10/26/2018 ATTENDING PHYSICIAN: Dr. Hudson. PRIMARY CARE PHYSICIAN: Dr. Hudson. SUBJECTIVE: The patient is resting in bed. She has slowing of her diarrhea. She denies any abdominal pain, nausea, vomiting. Her shortness of breath is also improving. No fevers and chills are reported per the nursing staff. She has a rectal tube in place. OBJECTIVE: Vital Signs: Temperature 98.3 degrees, pulse rate of 90, respiratory rate of 25, blood pressure 150/83, saturating 94% on nasal cannula. Body weight of 137 pounds and 8 ounces. BMI 22.9 kg/m2. General Appearance: Thinly built, lying in bed, in no acute distress. HEENT: Pale conjunctivae. No icterus. Neck: Supple. Abdomen: Soft, nondistended. No guarding. No rebound. Extremities: No cyanosis, clubbing. Neurologic: The patient was drowsy this morning, was only able to answer simple questions. LABS: Hemoglobin and hematocrit are 10.7 and 32.1, white count of 4.74, platelet count of 332,000. Sodium of 132, potassium 3.1, chloride 97, bicarb 25, anion gap of 14, BUN of 36, creatinine 0.8, glucose of 239, calcium 7.3. ABG showing pH of 7.49, pCO2 of 38, PO2 of 70. This is on 28% FiO2. AST 15, ALT 10, alkaline phosphatase 79, total protein is 6, albumin of 2.9, total bilirubin is 0.68. These liver tests are from 10/22/2018. B12 more than 2000, folate is 10.8. TSH is 0.01, free T4 is 2.13. Urinalysis showed positive blood, positive nitrites, and large leukocytes. Urine culture showed Klebsiella pneumoniae. Blood cultures x2 negative after 48 hours. Stool studies negative for cultures, stool white cells were none, stool for C. difficile antigen was positive, C. difficile toxin was negative. Chest x-ray done today showing improvement in the past in the lower portion of the right upper lobe, slightly improvement in the right upper lobe pneumonia. IMPRESSION AND PLAN: 1. Altered mental status. This is being monitored by the primary care team. 2. Dysphagia. Continue proton pump inhibitors and mechanical soft diet as tolerated. 3. Aspiration pneumonia. She is on antibiotics per the primary care team. 4. Hypovolemic hyponatremia. It is improved. 5. Clostridium difficile. She was switched to oral vancomycin 125 mg every 6 hours on 10/26/2018. This needs to be continued for 10 days. We will start her on Culturelle 1 capsule by mouth twice a day. 6. Malnutrition. She is on Clinimix 60 mL per hour. 7. Gastrointestinal prophylaxis with Protonix once daily. 8. Klebsiella pneumoniae urinary tract infection. She is on antibiotics per the primary care team. 9. Anemia. Continue to watch for now and transfuse as needed. 10. History of atrial fibrillation, on Eliquis at home. Currently, she is on Lovenox 60 mg intravenous every [address] Galdamez is following. 11. Acute respiratory distress syndrome secondary to aspiration pneumonia and congestive heart failure. Aware. 12. Iron studies revealing anemia of chronic disease. 13. The above plans were discussed with the patient's nurse at bedside. All questions were answered. Please call with any further questions. 14. Hyperthyroidism with low TSH and elevated free T4. This is being worked up by Dr. Hudson. Please call with any further questions. cc: MD Miguel Ramos MD
--- NOTE | 2018-10-26 15:06 | PROGRESS NOTE ---
DATE: 10/26/2018 SUBJECTIVE: Patient denies shortness of breath or chest discomfort on nasal cannula oxygen. OBJECTIVE: Vital Signs: Blood pressure 146/86, heart rate 82, oxygen saturation 99% on nasal cannula oxygen. Neck: There is no significant jugular venous distention. Chest: Clear to auscultation. Cardiac: Exam reveals a irregular rate and rhythm without appreciable murmur, rub, or gallop. There is no evidence of peripheral edema. LABORATORY DATA: Includes a white blood cell count 4.74, hematocrit 32.1, hemoglobin 10.7, platelet count 332,000. Sodium 135, potassium 3.4, chloride 95, carbon dioxide 32, BUN 36, creatinine 0.9, glucose 266. IMPRESSION: 1. Respiratory failure, progressively improving. 2. Aspiration pneumonitis. 3. Component pulmonary edema, now improved following diuresis. 4. Recurrent atrial fibrillation in the setting of hyperthyroidism. Heart rate reasonably controlled with current regimen. 5. Hypertensive cardiovascular disease. 6. Hyperthyroidism RECOMMENDATIONS: Continue to manage atrial fibrillation with rate control and anticoagulation as tolerated. cc: MD Miguel Prescott MD MTDD
[2018-10-26] MEDS: CULTURELLE PO SCH (20:20)
--- NOTE | 2018-10-26 21:10 | PROGRESS NOTE ---
DATE: 10/26/2018 SUBJECTIVE: Patient is a little better. She has atrial fibrillation off Cardizem drip. C difficile antigen positive and slightly depressed. REVIEW OF SYSTEMS: Otherwise none reported. PHYSICAL EXAM: Temperature is 97 degrees. Vitals are stable.HEENT: Within normal limits. Chest: Bilateral air entry. Heart: Sounds are regular. Abdomen: Belly is soft, nontender. PICC line on the right side. Dickson and rectal tube were placed. LABORATORY DATA: CBC: White cell count 4.7, hematocrit 32, platelets 332,000. ABG pH is 7.49, pCO2 38, PO2 70 on 28%. Sodium 135, potassium 3.4, chloride 95, BUN 36, creatinine 0.9, glucose 266, calcium 7.8. ASSESSMENT AND PLAN: 1. Mental status improving. 2. Chronic atrial fibrillation, rate controlled on beta blockers. Continue on Lovenox and slowly changing into Eliquis. Apparently, patient stopped taking as an outpatient. The family told me he could not afford the medication. 3. Aspiration pneumonia improving on present antibiotics with Zosyn and IV steroids. 4. Nutrition IV Clinimix. 5. Diarrhea. Clostridium difficile antigen positive. Continue on probiotics and Flagyl. 6. Hypothyroidism. Continue on methimazole. 7. Hypokalemia. Replace the potassium and we will transfer out of the intensive care unit to a step-down bed and will follow up. LEVEL OF DOCUMENTATION: 25 minutes. cc: Miguel Hudson MD
[2018-10-26 22:24] LABS: CALCIUM 7.4 mg/dL (8.8-10.2); POTASSIUM 3.6 mmol/L (3.5-5.1)
[2018-10-27] MEDS: VANCOCIN PO SCH ×4 (02:15→20:27)
[2018-10-27] MEDS: ZOSYN 3.375 GM in NS 50 ML IV SCH ×4 (02:15→20:27)
[2018-10-27 04:32] LABS: ALLEN TEST YES; BE 9.6 mmoll (-3.0-3.0); BLOOD TYPE ARTERIAL; HCO3-(ACT) 32.4 mmoll (20.0-26.0); METHB 1.3 % (0.0-1.5); O2(CT) 15.3 mL/dL (15.0-23.0); O2HB 95.1 % (95.0-99.0); PCO2(98.6) 46 mmHg (35-45); PO2(98.6) 75 mmHg (60-100); SAMPLE BLOOD; SAO2 97.6 % (95.0-100.0); THB 11.4 g/dL (11.5-17.4); pH(98.6) 7.48 (7.35-7.45)
[2018-10-27 04:33] LABS: MODALITY CANNULA
[2018-10-27] MEDS: LOPRESSOR IV PRN ×2 (07:18→13:51)
[2018-10-27] MEDS: LOPRESSOR PO SCH ×3 (07:54→20:26)
[2018-10-27] MEDS: TAPAZOLE PO SCH ×3 (07:54→20:27)
[2018-10-27] MEDS: SOLU-MEDROL IV SCH ×3 (07:54→20:26)
[2018-10-27] MEDS: LASIX IV SCH ×2 (07:54→08:13)
[2018-10-27] MEDS: CULTURELLE PO SCH ×3 (07:54→20:27)
[2018-10-27] MEDS: LOVENOX SUBQ SCH (10:10)
[2018-10-27] MEDS: PROTONIX IV SCH (10:10)
[2018-10-27] MEDS: CLINIMIX E 4.25%-5% SOLUTION 1,000 ML IV SCH (13:50)
--- NOTE | 2018-10-27 15:42 | PROGRESS NOTE ---
DATE: 10/27/2018 SUBJECTIVE: Patient continues without chest discomfort or shortness of breath, on supplemental oxygen per nasal cannula. She relates feeling somewhat weak. OBJECTIVE: Vital Signs: Blood pressure 126/76, heart rate 81, oxygen saturation 100% on nasal cannula oxygen at 2 L/minute. Neck: There is no significant jugular venous distention. Chest: Chest is clear to auscultation. Cardiac: Exam reveals an irregular rate and rhythm without appreciable murmur or gallop. Extremities: There is no evidence of peripheral edema. LABORATORY DATA: Includes arterial blood gas with a pH of 7.48, pCO2 46, PO2 of 75 on nasal cannula oxygen at 2 L/minute. IMPRESSION: 1. Respiratory failure. Progressively improving and primarily related to aspiration pneumonitis. 2. Aspiration pneumonitis. 3. Component of pulmonary edema, now improved following diuresis. 4. Recurrent atrial fibrillation in the setting of hyperthyroidism. Heart rate controlled on current regimen. 5. Hypertensive cardiovascular disease. 6. Hyperthyroidism. RECOMMENDATIONS: 1. Continue current metoprolol 50 mg p.o. b.i.d. for rate control. 2. Discontinue IV diltiazem. 3. Continue long-term anticoagulation. Patient currently on Lovenox, but previously had been on Eliquis 2.5 mg p.o. b.i.d. We will resume Eliquis after discontinuing Lovenox. cc: MD Miguel Prescott MD
--- NOTE | 2018-10-27 17:54 | PULMONOLOGY PROGRESS NOTE ---
DATE: 10/27/2018 SUBJECTIVE: Patient was sleeping on arrival, but she is arousable. She denies cough or shortness of breath. She does complain of weakness. OBJECTIVE: The patient has been afebrile for the last 24 hours. Blood pressure 126/76, heart rate 81, respiratory rate 16, oxygen saturation 100% on nasal cannula.HEENT: Pupils are equally reactive. Oropharynx appears clear. Neck is supple. Chest reveals bibasilar crackles and occasional rhonchi over the large airways. Cardiac is a regular rhythm. S1, S2. Abdomen is soft. Extremities are without significant edema. LABORATORIES: No chemistries, white blood count, or chest x-ray today. Arterial blood gas on 2 L per nasal cannula reveals an increased AA gradient at 67, the pH 7.48, pCO2 of 46, pO2 of 75. IMPRESSION: An 83-year-old with: 1. Pneumonia. 2. Hypoxemic respiratory failure. 3. Clostridium difficile colitis. 4. Fluid overload, with improvement following diuresis. PLAN: 1. Continue current antibiotic regimen. 2. Wean oxygen as tolerated. 3. Cardiac management per Dr. Galdamez. 4. Follow up chest x-ray tomorrow morning. cc: MD Miguel Palomo MD
[2018-10-27] MEDS: ELIQUIS PO SCH (20:26)
--- NOTE | 2018-10-27 21:10 | PROGRESS NOTE ---
DATE: 10/27/2018 SUBJECTIVE: The patient was moved out of the ICU and in step-down. She is depressed. She is not eating well. Diarrhea is getting better. OBJECTIVE: Temperature is 98 degrees, pulse 95. Vitals are stable.HEENT: Within normal limits. Neck: Supple. PICC line on the right side noted. Irregular heart sounds. Belly is soft, nontender. No peripheral edema. INVESTIGATIONS: None reported. ABG, pH is 7.48, pCO2 is 46, PO2 is 75, on 28%. ASSESSMENT AND PLAN: 1. Clostridium difficile antigen positive diarrhea. Dr. Sprague started on vancomycin. Continue on Flagyl. 2. Escherichia coli urinary tract infection. On IV Zosyn. 3. Discontinue rectal tube. 4. Discontinue Dickson. 5. Continue Clinimix for nutrition. 6. Atrial fibrillation, rate controlled. Continue on methimazole. 7. Deep vein thrombosis and gastrointestinal prophylaxis as per order sheet. Out of the bed with physical therapy. Possible rehab placement on Tuesday. Continue present treatment over the weekend. LEVEL OF DOCUMENTATION: 35 minutes. cc: Miguel Hudson MD
--- NOTE | 2018-10-27 23:22 | PROVIDER PROGRESS NOTE ---
Progress Note S: No acute overnight events. Patient has rectal tube. She reports some mild abdominal pain. She is tolerating some PO. No N/V. SOB improving. O: Last Vital Signs Temp 97.8 F 10/28/18 03:35 Pulse 89 10/28/18 03:35 Resp 19 10/28/18 03:35 BP 150/83 10/28/18 03:35 Pulse Ox 100 10/28/18 03:35 Height 5 ft 5 in Weight 137 lb 8 oz GEN: awake, NAD HEENT: anicteric, MMM NECK: supple, no jvd PULM: CTAB, no wheezing ABD: soft NT/ND, BS+, rectal tube in place EXT: no cce NEURO: nonfocal LABS: no labs A/P: Ms. Jennifer Levy is an 83-year-old woman with past medical history of atrial fibrillation on Eliquis, recurrent urinary tract infections and prior admission for pneumonia, who represents with acute respiratory distress, found to have aspiration pneumonia +/- congestive heart failure exacerbation. Found to have K pneumo UTI. Course complicated by hyponatremia and Cdiff infection. GI consulted for concern for possible dysphagia. She is tolerating mechanical soft diet without issue. Continues to have diarrhea. # Dysphagia: continue PPI and mechanical soft diet as tolerated # Aspiration pneumonia: on abx per primary; consider stopping steroids given absence of obstructive airway disease or adrenal insufficiency # Cdiff: continue vancomycin 125mg PO QID for total 14 days; monitor stool output # K pneumoniae UTI: abx per primary # Anemia: stable; no overt bleeding Will follow with you. Please call with questions
[2018-10-28] MEDS: ZOSYN 3.375 GM in NS 50 ML IV SCH ×4 (01:34→20:59)
[2018-10-28] MEDS: VANCOCIN PO SCH ×4 (02:45→21:00)
[2018-10-28] MEDS: CLINIMIX E 4.25%-5% SOLUTION 1,000 ML IV SCH (03:56)
[2018-10-28 04:52] LABS: ALLEN TEST YES; BE 14.4 mmoll (-3.0-3.0); BLOOD TYPE ARTERIAL; HCO3-(ACT) 36.2 mmoll (20.0-26.0); METHB 0.3 % (0.0-1.5); O2(CT) 16.4 mL/dL (15.0-23.0); O2HB 98.1 % (95.0-99.0); PCO2(98.6) 39 mmHg (35-45); PO2(98.6) 177 mmHg (60-100); SAMPLE BLOOD; SAO2 99.4 % (95.0-100.0); THB 11.6 g/dL (11.5-17.4)
[2018-10-28 04:53] LABS: pH(98.6) 7.59 (7.35-7.45)
[2018-10-28 04:54] LABS: MODALITY CANNULA
--- NOTE | 2018-10-28 07:39 | Diag Imaging Result Doc PS360 ---
CHEST-PORTABLE - 10/28/2018 INDICATION: abnormal exam COMPARISON: 10/26/2018 FINDINGS: Stable right PICC line in good position. There has been resolution in the small focal infiltrate or atelectasis in the right upper lobe. There is some patchy atelectasis or infiltrate in the left lower lobe and left upper lobe. Heart size and pulmonary vascularity remains borderline enlarged. There is probably a trace left pleural effusion. IMPRESSION: Mixed changes, with overall no significant change from prior. Electronically signed by Shawn Benavides 10/28/2018 7:37 AM
[2018-10-28 08:32] LABS: CALCIUM 8.6 mg/dL (8.8-10.2); CREATININE 0.9 mg/dL (0.5-0.9); POTASSIUM 2.8 mmol/L (3.5-5.1)
[2018-10-28] MEDS ORDERED: POTASSIUM CHLORIDE 40 MEQ/SWI 40 MEQ/100 ML IVPB IV ONE (09:17)
[2018-10-28] MEDS: CULTURELLE PO SCH ×2 (09:29→21:00)
[2018-10-28] MEDS: LOPRESSOR PO SCH ×2 (09:29→21:00)
[2018-10-28] MEDS: LASIX IV SCH (09:30)
[2018-10-28] MEDS: ELIQUIS PO SCH ×2 (09:30→21:00)
[2018-10-28] MEDS: TAPAZOLE PO SCH ×2 (09:30→21:00)
[2018-10-28] MEDS: LOPRESSOR IV PRN (09:30)
[2018-10-28] MEDS: SOLU-MEDROL IV SCH ×2 (09:30→21:00)
[2018-10-28] MEDS: PROTONIX IV SCH ×2 (09:42→10:09)
--- NOTE | 2018-10-28 12:21 | PROGRESS NOTE ---
DATE: 10/28/2018 VITAL SIGNS: Temperature 97.8 degrees, heart rate 113 and irregular, respiration 18, blood pressure 148/83, O2 saturation on nasal oxygen 98%. LABORATORY DATA: Blood gases revealed elevated pH of 7.59. PCO2 was 39 and PO2 was 177. O2 was decreased to 1 L per nasal cannula and 11 a.m. gases are pending. Sodium was low at 132, potassium 2.8, glucose 291, calcium 8.6. Dr. Bonilla ordered 40 mg KCl to be given this morning. She is receiving 40 mg Lasix IV daily. Potassium will be given daily IV. She has some difficulty swallowing and is on a mechanical soft diet. She was able to eat some this morning. Last chest x-ray showed some improvement from mild congestive heart failure on admission. She is on antibiotics for Klebsiella cystitis. Clostridium assay was negative on 10/25/2018. PHYSICAL EXAMINATION: Chest is clear to auscultation. She has persistent atrial fibrillation. Abdomen is soft. There is no ankle edema. PLAN: Continue current therapy plus add some daily potassium. Lab will be rechecked tomorrow. cc: MD Miguel Weathers MD
[2018-10-28 13:04] LABS: ALLEN TEST YES; BE 13.9 mmoll (-3.0-3.0); BLOOD TYPE ARTERIAL; HCO3-(ACT) 35.7 mmoll (20.0-26.0); METHB 1.1 % (0.0-1.5); O2(CT) 17.8 mL/dL (15.0-23.0); O2HB 94.5 % (95.0-99.0); PCO2(98.6) 46 mmHg (35-45); PO2(98.6) 68 mmHg (60-100); SAMPLE BLOOD; SAO2 96.8 % (95.0-100.0); THB 13.4 g/dL (11.5-17.4); pH(98.6) 7.53 (7.35-7.45)
[2018-10-28 13:05] LABS: MODALITY CANNULA
[2018-10-28] MEDS: POTASSIUM CHLORIDE 40 MEQ in 1/2 NS 1,000 ML IV SCH (13:19)
[2018-10-28] MEDS: ULTRAM PO PRN (15:20)
--- NOTE | 2018-10-28 17:38 | PULMONOLOGY PROGRESS NOTE ---
DATE: 10/28/2018 SUBJECTIVE: The patient is more awake and alert today. She has a slightly wet cough. She is without specific complaints. She remains in bed. OBJECTIVE: Vital Signs: The patient has been afebrile for the last 24 hours. Blood pressure 135/85, heart rate 98, respiratory rate 18, oxygen saturation 95% on 1 L per nasal cannula. HEENT: Pupils are equal. Oropharynx appears clear. Neck: Supple. Chest: Reveals occasional rhonchi bilaterally. Cardiac exam: S1, S2. Abdomen: Soft. Extremities: Without edema. LABORATORIES: Chest x-ray reveals patchy infiltrates on the left with some decreased infiltrates in the right upper lobe. Sodium 132, potassium 2.8, chloride 87, bicarbonate 41, BUN 38, creatinine 0.9. Arterial blood gas reveals a pH of 7.53, pCO2 of 46, pO2 68 on 2 L of per nasal cannula. IMPRESSION: An 83-year-old with: 1. Pneumonia. 2. Hypoxemic respiratory failure. 3. Clostridium difficile colitis. PLAN: 1. Continue current antibiotic regimen. 2. Wean oxygen as tolerated. 3. Attempt to mobilize the patient. I spoke with the nursing staff, and hopefully she can be transitioned into a chair. cc: MD Miguel Palomo MD
--- NOTE | 2018-10-28 18:32 | GASTROENTEROLOGY PROGRESS NOTE ---
DATE: 10/26/2018 SUBJECTIVE: The patient is resting in bed. She is feeling better. She is trying to eat better. She is having liquid brown stools. Her family is present at bedside. I spoke to the patient's son and family. OBJECTIVE: Vitals: Temperature 97.5, pulse of 98, respiratory rate 18, blood pressure 135/85, saturating 92% on 1 L nasal cannula. Body weight of 137 pounds 8 ounces. BMI 22.9. General: Thinly built, lying in bed, in no acute distress. HEENT: Pallor. No icterus. Neck: Supple. Abdomen: Soft, nondistended. No guarding or rebound. Extremities: No cyanosis, clubbing. Neurologic: She is alert, awake, and answers questions. LABS: Her sodium is 132, potassium 2.8, chloride 87, bicarb 41, anion gap 4. BUN of 38, creatinine of 0.9, glucose of 291. Calcium is 8.6, magnesium 2.0. ABG showing pH of 7.53, pCO2 of 46, pO2 of 68. This is on 28% FiO2. IMPRESSION AND PLAN: 1. Dysphagia. Continue proton pump inhibitor and mechanical soft diet as tolerated. She is trying to eat cornbread and buttermilk. 2. Aspiration pneumonia, on antibiotics per primary care doctor. 3. Clostridium difficile positive on stool studies. Continue vancomycin 120 mg p.o. 4 times daily for a total of 14 days. Monitor her stool output. 4. Klebsiella pneumoniae urinary tract infection. Continue antibiotics per primary doctor. 5. Anemia, stable. Continue to watch for now. 6. Gastrointestinal prophylaxis with proton pump inhibitors. 7. Electrolyte imbalance, being managed by the primary care team. 8. Atrial fibrillation. Aware. 9. Above plan was reviewed with the patient's family at bedside. All questions were answered. Please call us with any further questions. cc: MD Miguel Ramos MD
[2018-10-29] MEDS: ZOSYN 3.375 GM in NS 50 ML IV SCH ×4 (01:36→20:24)
[2018-10-29] MEDS: VANCOCIN PO SCH ×4 (01:36→20:24)
[2018-10-29] MEDS: POTASSIUM CHLORIDE 40 MEQ in 1/2 NS 1,000 ML IV SCH ×2 (02:03→18:44)
[2018-10-29 05:01] LABS: ALLEN TEST YES; BE 10.4 mmoll (-3.0-3.0); BLOOD TYPE ARTERIAL; METHB 0.9 % (0.0-1.5); O2(CT) 19.4 mL/dL (15.0-23.0); O2HB 94.6 % (95.0-99.0); PO2(98.6) 76 mmHg (60-100); SAMPLE BLOOD; SAO2 96.8 % (95.0-100.0); THB 14.6 g/dL (11.5-17.4); pH(98.6) 7.44 (7.35-7.45)
[2018-10-29 05:02] LABS: PCO2(98.6) 54 mmHg (35-45)
[2018-10-29 05:03] LABS: MODALITY CANNULA
[2018-10-29 07:49] LABS: AGAP 12; BUN 33 mg/dL (8-22); CALCIUM 8.1 mg/dL (8.8-10.2); CHLORIDE 90 mmol/L (98-107); COSMO 287; CREATININE 0.8 mg/dL (0.5-0.9); ESTIMATED GFR > 60; GLUCOSE 269 mg/dL (70-104); SODIUM 135 mmol/L (136-145); TCO2 33 mmol/L (25-35)
[2018-10-29] MEDS: CULTURELLE PO SCH ×2 (08:38→20:24)
[2018-10-29] MEDS: LASIX IV SCH (08:38)
[2018-10-29] MEDS: PROTONIX IV SCH ×2 (08:38→11:50)
[2018-10-29] MEDS: SOLU-MEDROL IV SCH ×2 (08:38→20:23)
[2018-10-29] MEDS: LOPRESSOR PO SCH ×2 (08:38→20:24)
[2018-10-29] MEDS: TAPAZOLE PO SCH ×2 (08:38→20:25)
[2018-10-29] MEDS: ELIQUIS PO SCH ×2 (08:38→20:24)
--- NOTE | 2018-10-29 09:14 | PROGRESS NOTE ---
DATE: 10/29/2018 VITAL SIGNS: Temperature 97.6 degrees, heart rate 93 and irregular, respirations 18, blood pressure 150/80, O2 saturation on 1 L nasal oxygen is 100%. LABORATORY DATA: Blood gases reveal PO2 to be 76, pCO2 of 54 (elevated), pH 7.44 on 1 L nasal oxygen. SUBJECTIVE: She states her breathing feels a little better. Lungs are fairly clear. Heart is irregular and rate controlled. She continues to have some liquid stools. She is on vancomycin for positive Clostridium study. GI and Pulmonary are assisting. PLAN: Continue current therapy. cc: MD Miguel Weathers MD
--- NOTE | 2018-10-29 17:38 | GASTROENTEROLOGY PROGRESS NOTE ---
DATE: 10/29/2018 SUBJECTIVE: Patient is resting in a chair. She is feeling better. She is eating better. She denies any dysphagia. She has not moved her bowels today. OBJECTIVE: Vital signs: Temperature are 99, pulse rate 100, respiratory rate 18, blood pressure 126/81, saturating 99% on nasal cannula. Body weight of 132 pounds 8 ounces. BMI 22 kg/m2. General Appearance: Moderately built, moderately nourished, lying in bed, in no acute distress. HEENT: Pale conjunctivae. No icterus. Neck: Supple. Abdomen: Soft, nondistended. No guarding. Extremities: No cyanosis, clubbing. Neurologic: She is alert, awake, and answers simple questions. LABS: Her ABG showing pH of 7.44, pCO2 54, PO2 76; this is on nasal cannula at 24% FiO2. Sodium of 135, potassium 4, bicarb 33, anion gap of 12, BUN of 32, creatinine 0.8, glucose of 269, calcium is 8.1. IMPRESSION AND PLAN: 1. Dysphagia has improved. We will continue on PPIs for 90 days and then wean down to Zantac 150 mg p.o. b.i.d. Continue mechanical soft diet as tolerated. She will follow up in the clinic in 4 weeks after discharge for follow-up dysphagia. 2. Aspiration pneumonia. She is on antibiotics per primary care team. 3. Clostridium difficile positive on stool studies. She is on oral vancomycin 125 mg p.o. 4 times daily, total of 14 days. We will start her on Culturelle 1 capsule p.o. b.i.d. Monitor stool output. This has improved. 4. Klebsiella pneumoniae urinary tract infection. She is on antibiotics per primary care team. 5. Anemia. Continue to watch for now. We will start on iron C b.i.d. and multivitamins once a day for 90 days. 6. Electrolyte imbalance, improving. Being managed by the primary care team. 7. Atrial fibrillation. Aware. 8. We will sign off at this time. The above plan was discussed with the patient and all questions answered. Please call us with any further questions. cc: MD Miguel Ramos MD MTDD
[2018-10-29] MEDS: ICAR-C PO SCH (20:24)
--- NOTE | 2018-10-29 21:30 | PULMONOLOGY PROGRESS NOTE ---
DATE: 10/29/2018 SUBJECTIVE: The patient is awake, alert, and conversant. She is sitting in a chair. She is without specific complaints. OBJECTIVE: Vital Signs: The patient has been afebrile for the last 24 hours. Blood pressure 128/96, heart rate 96, respiratory rate 18, oxygen saturation 99% on 1 L per nasal cannula. HEENT: Pupils are equal and reactive. Oropharynx appears clear. Neck: Is supple. Chest: Reveals good air entry bilaterally with prolonged expiratory phase. Cardiac exam: S1-S2. Abdomen: Is soft and without hepatosplenomegaly. Extremities: Reveal trace edema. LABORATORIES: Arterial blood gas reveals a pH 7.44, pCO2 of 54, PO2 of 76. Sodium 135, potassium 4.0, chloride 90, serum bicarbonate 33, BUN 33, creatinine 0.8. IMPRESSION: 1. An 83-year-old with pneumonia. 2. Hypoxemic respiratory failure with improvement. 3. Clostridium difficile colitis. PLAN: 1. Continue current antibiotic regimen. Continue to mobilize patient as tolerated. 2. Wean oxygen as tolerated. 3. Follow up chest x-ray tomorrow morning. cc: MD Miguel Palomo MD
[2018-10-30] MEDS: ZOSYN 3.375 GM in NS 50 ML IV SCH ×3 (01:02→13:55)
[2018-10-30] MEDS: VANCOCIN PO SCH ×4 (01:02→21:14)
[2018-10-30 04:47] LABS: ALLEN TEST YES; BE 9.1 mmoll (-3.0-3.0); BLOOD TYPE ARTERIAL; HCO3-(ACT) 31.9 mmoll (20.0-26.0); METHB 0.9 % (0.0-1.5); O2(CT) 16.1 mL/dL (15.0-23.0); O2HB 93.5 % (95.0-99.0); PCO2(98.6) 44 mmHg (35-45); PO2(98.6) 64 mmHg (60-100); SAMPLE BLOOD; SAO2 95.7 % (95.0-100.0); THB 12.2 g/dL (11.5-17.4); pH(98.6) 7.49 (7.35-7.45)
[2018-10-30 04:48] LABS: MODALITY ROOM AIR
--- NOTE | 2018-10-30 06:32 | Diag Imaging Result Doc PS360 ---
EXAM: CHEST-PORTABLE HISTORY: abnormal exam TECHNIQUE: Chest single view COMPARISON: 10/28/2018 FINDINGS: The lungs are well expanded. The heart is mildly enlarged. The vessels are not distended. There are no infiltrates. No effusion identified. IMPRESSION: Interval improvement Electronically signed by Rogelio Durán 10/30/2018 6:30 AM
[2018-10-30] MEDS: SOLU-MEDROL IV SCH (08:45)
[2018-10-30] MEDS: CULTURELLE PO SCH ×2 (08:46→21:13)
[2018-10-30] MEDS: LOPRESSOR PO SCH ×2 (08:46→21:14)
[2018-10-30] MEDS: CENTRUM SILVER PO SCH (08:46)
[2018-10-30] MEDS: ELIQUIS PO SCH ×2 (08:46→21:13)
[2018-10-30] MEDS: ICAR-C PO SCH ×2 (08:46→21:14)
[2018-10-30] MEDS: POTASSIUM CHLORIDE 40 MEQ in 1/2 NS 1,000 ML IV SCH (09:05)
[2018-10-30] MEDS: PROTONIX IV SCH (13:53)
[2018-10-30] MEDS: TAPAZOLE PO SCH ×2 (13:55→21:13)
[2018-10-30] MEDS: LASIX PO SCH (13:55)
--- NOTE | 2018-10-30 18:49 | PROGRESS NOTE ---
DATE: 10/30/2018 SUBJECTIVE: The patient is doing a lot better off of Dickson and off rectal tube. REVIEW OF SYSTEMS: None reported. Off oxygen. Chest x-ray improving. OBJECTIVE: Temperature is 98 degrees. Vitals are stable.HEENT: Within normal limits. Chest: Clear. Heart: Irregular heart sounds. Abdomen: Belly is soft and nontender. Neurological: No neurological deficits. INVESTIGATIONS: ABG shows pH is 7.49, pCO2 44, PO2 64 on room air. Sodium 135, potassium 4, BUN 33, and creatinine 0.8. ASSESSMENT AND PLAN: 1. Aspiration pneumonia is improving. 2. Atrial fibrillation, rate control and anticoagulation with Eliquis. I changed the Lovenox and Eliquis to 2.5 p.o. b.i.d. 3. Hypokalemia, replacing with fluids. We will decrease to 50 mL/h. 4. PICC line on the right side. 5. C. Difficile antigen positive on vancomycin. Flagyl was discontinued. 6. Continue GI prophylaxis with IV Protonix. 7. UTI currently receiving Klebsiella, which is better. We will change to Levaquin. 8. We will discuss with the family about rehab placement. We will check the labs in the morning. LEVEL OF DOCUMENTATION: 25 minutes. cc: Miguel Hudson MD
[2018-10-31] MEDS: VANCOCIN PO SCH ×4 (02:04→20:25)
[2018-10-31 07:17] LABS: BASO# 0.03 X1000 (0.0-0.2); BASO% 0.3 % (0.0-0.8); EOS# 0.08 X1000 (0.0-0.7); EOS% 0.7 % (0.0-10.0); HEMATOCRIT 37.7 % (37.0-47.0); HEMOGLOBIN 12.8 g/dL (12.0-16.0); IMM GRAN# 0.21 X1000 (0.0-0.04); IMM GRAN% 1.9 % (0.0-0.5); LYMPH% 14.3 % (20.5-51.1); MCH 28.2 PG (27-31); MONO# 1.26 X1000 (0.11-0.59); MONO% 11.2 % (1.7-9.3); MPV 10.5 FL (7.4-10.4); NEUT# 8.03 X1000 (1.4-6.5); NEUT% 71.6 % (42.2-75.2); PLT 377 X1000 (130-400); RBC 4.54 XMIL (4.2-5.4); RDW 14.4 % (11.5-14.5); WBC 11.21 X1000 (4.8-10.8)
[2018-10-31 07:39] LABS: AGAP 13; BUN 24 mg/dL (8-22); CALCIUM 8.9 mg/dL (8.8-10.2); CHLORIDE 95 mmol/L (98-107); COSMO 275; CREATININE 0.8 mg/dL (0.5-0.9); ESTIMATED GFR > 60; GLUCOSE 139 mg/dL (70-104); POTASSIUM 4.1 mmol/L (3.5-5.1); SODIUM 134 mmol/L (136-145); TCO2 26 mmol/L (25-35)
[2018-10-31] MEDS: ICAR-C PO SCH ×2 (08:25→20:25)
[2018-10-31] MEDS: CULTURELLE PO SCH ×2 (08:25→20:25)
[2018-10-31] MEDS: CENTRUM SILVER PO SCH (08:25)
[2018-10-31] MEDS: ELIQUIS PO SCH ×2 (08:25→20:25)
[2018-10-31] MEDS: SOLU-MEDROL IV SCH (08:26)
[2018-10-31] MEDS: TAPAZOLE PO SCH ×2 (08:26→20:25)
[2018-10-31] MEDS: LOPRESSOR PO SCH ×2 (08:26→20:25)
[2018-10-31] MEDS: LASIX PO SCH (08:26)
[2018-10-31] MEDS: LEVAQUIN PO SCH (08:26)
[2018-10-31] MEDS: LEXAPRO PO SCH (08:27)
[2018-10-31] MEDS: POTASSIUM CHLORIDE 40 MEQ in 1/2 NS 1,000 ML IV SCH (08:55)
[2018-10-31] MEDS: PROTONIX IV SCH (12:46)
[2018-10-31] MEDS: ULTRAM PO PRN (20:32)
--- NOTE | 2018-10-31 22:21 | PROGRESS NOTE ---
DATE: 10/31/2018 SUBJECT: The patient is doing better, slightly depressed. Waiting for placement due to C difficile antigen positive. No diarrhea. REVIEW OF SYSTEMS: None reported. EXAMINATION: Vitals: Stable. HEENT: Within normal limits. Chest: Clear, irregular. Heart: Sounds. Belly is soft, nontender. No neurological deficits. INVESTIGATIONS: CBC. White cell count 11, hematocrit 37, platelets 377,000, PO2 64 on room air, SMA 7 normal. ASSESSMENT AND PLAN: 1. Aspiration pneumonia better. 2. Depression Lexapro 10 mg daily. 3. Clostridium difficile antigen positive currently stable, currently on vancomycin. Decrease IV fluids 50 mL/h. 4. Continue rate control for atrial fibrillation, hyperthyroidism on methimazole. 5. Decrease IV steroids. 6. Waiting for placement and continue present treatment. LEVEL OF DOCUMENTATION: 25 minutes. cc: Miguel Hudson MD
[2018-11-01] MEDS: VANCOCIN PO SCH ×2 (01:07→08:41)
[2018-11-01] MEDS: POTASSIUM CHLORIDE 40 MEQ in 1/2 NS 1,000 ML IV SCH (03:33)
[2018-11-01] MEDS: LEVAQUIN PO SCH (08:40)
[2018-11-01] MEDS: LEXAPRO PO SCH (08:40)
[2018-11-01] MEDS: CULTURELLE PO SCH (08:41)
[2018-11-01] MEDS: LOPRESSOR PO SCH (08:41)
[2018-11-01] MEDS: ELIQUIS PO SCH (08:41)
[2018-11-01] MEDS: ICAR-C PO SCH (08:41)
[2018-11-01] MEDS: TAPAZOLE PO SCH (08:41)
[2018-11-01] MEDS: CENTRUM SILVER PO SCH (08:41)
[2018-11-01] MEDS: LASIX PO SCH (08:41)
--- NOTE | 2018-11-01 08:51 | DISCHARGE SUMMARY ---
ADMISSION DATE: 10/22/2018 DISCHARGE DATE: 11/01/2018 DISCHARGING DIAGNOSIS: Acute respiratory failure due to aspiration pneumonia, mostly right upper lobe. SECONDARY DIAGNOSES: 1. Persistent atrial fibrillation. 2. Hyperthyroidism due to silent thyroiditis, elevated T4, low TSH, normal thyroid-stimulating immunoglobulin, normal thyroid peroxidase antibody, radioactive iodine uptake is depressed. 3. Depression. 4. Deconditioning. 5. Vitamin B12 deficiency. 6. Vitamin D deficiency. 7. Hypertension. 8. Left kidney stones. CONSULTS: Dr. Bonilla; Dr. Von Galdamez; GI, Dr. Sprague. PROCEDURES: PICC line on the right side. BRIEF HISTORY: In brief, she is an 83-year-old white female, readmitted after she discharged from the rehab with shortness of breath, cough, wheezing. She was seen 2 days ago in my office. Chest x-ray was clear. She developed right upper lobe consolidation, worsening with atrial fibrillation, hypoxemia. The patient was admitted in the ICU. Please see the details of H and P on 10/22/2018. I am going to summarize the problems as follows: 1. Acute respiratory failure due to right upper lobe consolidation with aspiration pneumonia. The patient was started on IV antibiotics with Flagyl and Rocephin. Pulmonary consult was obtained. She was on oxygen 50%. She was given IV steroids and bronchodilators. 2. For aspiration, the patient has modified Speech Therapy evaluation, and no evidence of aspiration or obstruction noted. 3. Chronic atrial fibrillation, persistent, due to hyperthyroidism. The patient was seen by mold finisher. At this time, basically rate control with metoprolol, and Eliquis for stroke prevention. The patient was not taking Eliquis as an outpatient due to cost of the medicine. Other options are discussed. The patient also has persistent hyperthyroidism. Dr. Galdamez recommended continued rate control, and the patient was started on IV Cardizem drip, subsequently weaned off. 4. Nutritional status. IV Clinimix, IV fluids were given through the PICC line on the right side. 5. Initially, the patient was started on heparin, Lovenox twice daily, slowly swapping to Eliquis. 6. The patient has developed diarrhea. Clostridium difficile antigen positive. The patient was given Flagyl along with vancomycin. Rectal tube was taken out, and she did not have any loose bowel movements. Continue on probiotics and Flagyl. 7. The patient has UTI with Klebsiella, for which appropriate antibiotic was given. Dickson was taken out. 8. Deconditioning, bedridden. Needs aggressive physical therapy. At the request of the family, the patient is transferred to rehab. IMAGING AND LABORATORY DATA: Labs at the time of discharge as follows. CBC: White cell count 11.2, hematocrit 37, platelets 377,000. ABG on room air: PH is 7.49, pCO2 of 44, PO2 of 64. Sodium 134, potassium 4.1, chloride 95, BUN 24, creatinine 0.8. Urine cultures: Klebsiella. Blood cultures were negative. Clostridium difficile toxin was negative. Chest x-ray: Significant improvement. DISCHARGE INSTRUCTIONS: The patient did receive pneumococcal vaccine 23 on 09/22/2018. Living will is full code. DISCHARGE MEDICATIONS: Levaquin 500 daily for 7 days, Tapazole or methimazole 5 mg p.o. b.i.d., Lexapro 10 daily, Icar-C Plus 1 tablet p.o. b.i.d., Flagyl 500 t.i.d. for 21 tablets, Eliquis 2.5 b.i.d., Culturelle 1 tablet p.o. b.i.d., hold the amlodipine, Pepcid 40 mg daily, B12, folic acid 1 tablet daily, calcitriol 0.25 mcg daily, Calmoseptine ointment as directed, metoprolol 50 p.o. b.i.d., aspirin 81 mg daily, calcitriol 0.25 mcg daily. FOLLOWUP: Follow up in my office in 2 weeks. cc: MD Gisselle Schumacher MD William D. Denney, MD Michael Kelso, MD
[2018-11-01] MEDS ORDERED: SOLU-MEDROL IV SCH (09:00)
[2018-11-01 11:01] VITALS: BP 133/71
[2018-11-01] MEDS: PROTONIX IV SCH (11:32)
[2018-11-01] MEDS: SODIUM CHLORIDE 0.9% INJ SCH (11:33)
== END 2018-11-01 13:39 | DRG 177 ==
LOC: SUPCPDRO → ED 23:45 → ICU 10-22 04:32 → SUATTDRO 10-22 04:32 → 2N 10-26 11:59
PROVIDERS: ADMIT Internal Medicine; ATTEND Internal Medicine